=== PATIENT | male | born 2000 | race Caucasian/White ===

== ENCOUNTER 2021-06-25 10:28 | Emergency (ER) | payer OTHER, SELFPAY ==
--- NOTE | 2021-06-25 10:29 | ED.URI ---
HPI - URI/Sore Throat General Chief Complaint: Upper Respiratory Infection Stated Complaint: sore throat Time Seen by Provider: 06/25/21 10:29 Source: patient and RN notes reviewed History of Present Illness HPI Narrative: Patient is a 21-year-old male who presents the urgent care with complaints of sore throat. Patient states that he has had symptoms for the last 3 to 5 days. Reports of postnasal drainage, head congestion and headache. Patient has not had any recent Covid exposures. States that he has had a Covid vaccine. Denies any fever, nausea, vomiting. Patient has been taking ibuprofen for his symptoms. No other acute complaints. No acute distress noted. Patient read the plan of care. Some parts of this dictation were generated by voice recognition software and may contain typographical and/or grammatical inaccuracies. Related Data Allergies Allergy/AdvReac Type Severity Reaction Status Date / Time No Known Allergies Allergy Verified 06/25/21 10:51 Review of Systems Review of Systems: CONSTITUTIONAL: Denies fever, chills, or sweats. EYES: Denies visual changes, redness, or discharge. ENT: Reports of head congestion, sore throat and postnasal drainage CARDIOVASCULAR: Denies chest pain, palpitations, or edema. RESPIRATORY: Denies cough or dyspnea. GASTROINTESTINAL: Denies abdominal pain, nausea, vomiting, or diarrhea. GENITOURINARY: Denies dysuria or hematuria. SKIN: Denies rash or itching. MUSCULOSKELETAL: Denies back pain, joint pain, or myalgia. NEUROLOGIC: Reports of headache All other systems reviewed are negative, except as documented in HPI. PMFSH Comments At the time of my signature, I reviewed and agree with the nursing past medical, surgical, social, and family history. There is no relevant family history pertinent to the patient complaint. Exam Narrative: GENERAL: This is a well-nourished, well-developed patient, in no apparent distress. HEAD: normocephalic, atraumatic. EYES: PERRL. Sclera clear/white. Vision is grossly intact. EARS: External ears normal, auditory canals clear and without drainage, TMs normal without perforation. Hearing grossly intact. NOSE: External nose normal with no obvious nasal discharge, nares without redness, clear to yellow rhinorrhea. THROAT: Mucous membranes moist. Moderate erythema to the posterior oropharynx with mild bilateral tonsillar edema without exudate. Moderate postnasal drainage. NECK: Neck supple CARDIOVASCULAR: Regular rate and rhythm without murmurs, gallops, or rubs. RESPIRATORY: Clear to auscultation. Breath sounds equal bilaterally. No wheezes, rales, or rhonchi. SKIN: warm, intact with no suspicious lesions or rash, good texture and turgor. NEURO: awake, alert, and oriented to person, place and time. There were no obvious focal neurologic abnormalities. EXTREMITIES: No clubbing, cyanosis, or edema. Course Vital Signs Vital signs: Vital Signs Temperature 98.3 F 06/25/21 10:34 Pulse Rate 60 06/25/21 10:34 Respiratory Rate 18 06/25/21 10:34 Blood Pressure 119/72 06/25/21 10:34 Pulse Oximetry 100 06/25/21 10:34 Temperature 98.3 F 06/25/21 10:34 Pulse Rate 60 06/25/21 10:34 Respiratory Rate 18 06/25/21 10:34 Blood Pressure 119/72 06/25/21 10:34 Pulse Oximetry 100 06/25/21 10:34 Reviewed MDM - URI/Sore Throat MDM Narrative Medical decision making narrative: Reviewed lab results with the patient. He is aware that strep swab was negative. Educated patient on culture we will call within 72 hours if culture is positive antibiotics necessary. Rapid Covid swab was also negative. Advised the patient to use Tylenol/ibuprofen as needed for symptoms. Take a daily antihistamine such as Benadryl or Claritin. Complete the steroid regimen as prescribed. Be sure to eat medication. Use a humidifier at night and do not sleep with a fan on or the windows open. Follow-up with your PCP within 2 to 5 days or for worsening symptoms or
[2021-06-25 10:34] VITALS: BP 119/72; PULSE 60; RESP 18; TEMP 36.8; O2SAT 100
== END 2021-06-25 10:55 | disposition home or self-care (01) ==
PROVIDERS: Emergency Provider Nurse Practitioner Family; PCP Nurse Practitioner Family
DX: J02.9 Acute pharyngitis, unspecified (principal); Z20.822 Contact with and (suspected) exposure to COVID-19
CPT/HCPCS: 87081; 87426; 87880; 99213; C9803; G0463

== ENCOUNTER 2024-01-08 17:32 | Emergency (ER) | payer OTHER, SELFPAY ==
--- NOTE | 2024-01-08 17:36 | ED.GENADULT ---
HPI - General Adult General Chief complaint: Upper Respiratory Infection Stated complaint: throat Time Seen by Provider: 01/08/24 17:36 Source: patient, RN notes reviewed and old records reviewed Mode of arrival: ambulatory Limitations: no limitations History of Present Illness HPI narrative: 23-year-old male to [facility] Care for complaint of sore throat and runny nose that started yesterday. Patient attempted to treat sore throat with Chloraseptic spray at home. Patient requesting work note. Patient denies cough, shortness of breath, chest pain, known allergies, GI complaints, ear pain. Patient able to tolerate fluids by mouth. Respirations even and nonlabored. Patient speaking in full sentences without difficulty. Patient in no acute distress. Related Data Allergies Allergy/AdvReac Type Severity Reaction Status Date / Time No Known Allergies Allergy Verified 06/25/21 10:51 Review of Systems Review of Systems: All systems reviewed & are unremarkable except as noted in HPI and below Constitutional: Constitutional: Reports no additional constitutional complaints Eyes: Eyes: Reports no additional eye complaints ENT: Reports as per HPI, Reports nasal discharge and Reports sore throat Cardiovascular: Cardiovascular: Reports no additional cardiovascular complaints, Denies chest pain and Denies dyspnea Respiratory: Respiratory: Reports no additional respiratory complaints, Denies cough and Denies dyspnea Musculoskeletal: Musculoskeletal: Reports no additional musculoskeletal complaints Neurologic: Reports system reviewed and no additional complaints, except as documented Psychiatric: Psychiatric: Reports no additional psychiatric complaints PMFSH Comments At the time of my signature, I reviewed and agree with the nursing past medical, surgical, social, and family history. There is no relevant family history pertinent to the patient complaint. Exam Const: General: cooperative, healthy appearing, comfortable, no acute distress, alert and well nourished Nutritional Appearance: well nourished Orientation/consciousness: patient oriented x3 Limitations: no limitations HENMT: Head: normal to inspection Ears: external ears normal Face/Nose/Sinus: Normal external nose present, Normal nares present, normal facial exam, No erythema and No edema Face and sinus: normal facial exam, no erythema and no edema Mouth: Yes Normal oral and palatal mucosa present Eyes: General: appearance normal, both eyes and all related structures Neck: Neck: normal visual inspection, full ROM and no meningeal signs Lymphatic: no lymphadenopathy noted and no lymphedema noted Chest: Chest palpation & inspection: normal inspection of the chest Resp: Effort & Inspection: normal respiratory effort and able to speak in complete sentences Auscultation: clear to auscultation bilaterally Cardio: Jugular venous distension: no JVD Rate: regular rate Rhythm: regular rhythm Back/Spine/Pelvis: Cervical Spine: cervical ROM normal Skin: General skin exam: normal color, no rashes or lesions noted and turgor normal Neuro: General: patient oriented x3, gait normal, moves all extremities and no meningeal signs Speech: normal speech Gait exam (Neuro): Normal gait present Extrem: General: normal to inspection and full ROM Psych: Appearance: grossly normal and well kempt Course Course Emergency Course: Some parts of this dictation were generated by voice recognition software and may contain typographical and/or grammatical inaccuracies. Level of Care: Express Care Visit Vital Signs Vital signs: Vital Signs Temperature 37.1 C 01/08/24 17:41 Pulse Rate 89 01/08/24 17:41 Respiratory Rate 16 01/08/24 17:41 Blood Pressure 121/74 01/08/24 17:41 Pulse Oximetry 100 01/08/24 17:41 Oxygen Delivery Room Air 01/08/24 17:41 Temperature 37.1 C 01/08/24 17:41 Pulse Rate 89 01/08/24 17:41 Respiratory Rate 16 01/08/24 17:4
[2024-01-08 17:41] VITALS: BP 121/74; PULSE 89; RESP 16; TEMP 37.1; O2SAT 100
== END 2024-01-08 18:17 | disposition home or self-care (01) ==
LOC: EXPBETH 17:35
PROVIDERS: Emergency Provider Nurse Practitioner Family; PCP Nurse Practitioner Family
DX: J06.9 Acute upper respiratory infection, unspecified (principal)
CPT/HCPCS: 87081; 99212; G0463

== ENCOUNTER 2024-08-20 18:58 | Emergency (ER) | payer OTHER, SELFPAY ==
--- OUTSIDE RECORDS SUMMARY | 2024-08-20 19:00 | XMS_ITS | Data Portability ---
[facility] Organization [facility] YOLAND[facility] Astudillo Address [address] [facility] [place] [address] Care Team Providers Care Visual Coordinator Name Role Phone SOLE MITCHELL Primary Care Provider Assessment No assessment recorded. 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 [facility]-C Not available Not available Not available Lab HbA1c (hemoglob in A1c), blood 2020 021 [facility], [address] [place] [address], [address], [place], [address], 04/16/2021 09:13:12 TSH, ultra-sen sitive, serum 2020 021 [facility], [address], [address], [place], [address], 04/16/2021 09:13:13 CMP, serum or plasma 2020 021 [facility], [address], [address], [place], [address], 04/16/2021 09:13:09 lipid panel, serum 2020 021 [place] [facility], [address], [address], [place], [address], 04/16/2021 09:13:11 CBC 2020 021 [facility], [address], [address], [place], [address], 04/16/2021 09:13:10 CT + NG RNA, PCR, unspecifi ed specimen 2021 022 [facility], [address], [address], [place], [address], 09/18/2021 03:08:06 hsv (1+2) igg Ab, serum 2021 022 [facility], [address], [address], [place], [address], 09/18/2021 03:08:07 hepatitis C Ab, signal-to -cutoff, serum or plasma 2021 022 [facility], [address] [facility], [facility] [address], [place], [address], 09/18/2021 03:08:09 hepatitis B surface Ab, qualitati ve, serum 2021 022 [facility], [address] [facility], [facility] [address], [place], [address], 09/18/2021 03:08:07 RPR (rapid plasma reagin), serum 2021 [place] [facility], [address], [address], [place], [address], 09/18/2021 03:08:08 HIV 1 + 2, meaningfu l use set 2021 022 [facility], [address] [facility], [address], [place], [address], 09/18/2021 03:08:08 TSH, ultra-sen sitive, serum 2022 023 [facility], [address], [place], [address], 08/28/2022 07:08:33 CMP, serum or plasma 2022 023 [facility], [address], [address], [place], [address], 08/27/2022 03:08:20 lipid panel, serum 2022 023 [facility], [address], [place], [address], 08/27/2022 03:08:20 CBC 2022 023 [facility], [address], [place], [address], 08/27/2022 03:08:21 CT + NG RNA, PCR, unspecifi ed specimen 2022 023 [facility], [address] [place] [address], [facility] [address], [place], [address], 08/28/2022 07:08:32 hsv (1+2) igg Ab, serum 2022 023 [facility], [address] [facility], [facility] [address], [place], [address], 08/28/2022 07:08:31 hepatitis C Ab, signal-to -cutoff, serum or plasma 2022 023 [facility], [address], [facility] [address], [place], [address], 08/28/2022 07:08:31 hepatitis B surface Ab, qualitati ve, serum 2022 023 [facility], [address], [facility] [address], [place], [address], 08/28/2022 07:08:33 RPR (rapid plasma reagin), serum 2022 023 [facility], [address], [address], [place], [address], 08/28/2022 07:08:34 HIV 1 + 2, meaningfu l use set 2022 023 [facility], [address] [facility], [facility] [address], [place], [address], 08/28/2022 07:08:34 Referral None recorded. Procedures None recorded. Surgeries None recorded. Imaging None recorded. Medication Orders None recorded. Patient TargetsNo targets recorded. Patient Instructions Encounter Date Encounter Id Patient Instructions Last Modified By Organization Details Last Modified Time 03/26/2021 [id number] learning about healthy weight Not available 03/26/2021 11:27:40 Learning About Benefits of Quitting Smoking Not available 03/26/2021 11:26:53 tobacco cessation Not available 03/26/2021 11:26:53 Increase intake of fresh fruits, and vegetables. Avoid packaged foods and fast foods. drink at least 8-10 8oz glasses of water a day, exercise most days of the week. Take all medications as prescribed. Keep appointments with PCP and all specialists. Not available 03/26/2021 11:28:07 follow up as needed, yearly to keep established with provider I have reviewed the provider's note and I agree with the documented assessment and plan. HLF [email or web address] Not available 03/26/2021 19:59:42 09/16/2021 [id number] learning about healthy weight Not available 09/16/2021 16:28:59 exposure to sexually transmitted infections: care instructions Not available 09/16/2021 16:28:59 Increase intake of fresh fruits, and vegetables. Avoid packaged foods and fast foods. Follow a low salt diet, drink at least 8-10 8oz glasses of water a day, exercise most days of the week. Take all medications as prescribed. Keep appointments with PCP and all specialists. Not available 09/16/2021 16:37:51 follow up as needed, yearly to keep established with provider Not available 09/16/2021 16:37:57 08/26/2022 [id number] tetanus and diphtheria booster: care instructions Not available 08/26/2022 15:19:32 learning about vaping Not available 08/26/2022 15:18:15 eating healthy foods: care instructions Not available 08/26/2022 15:18:04 exposure to sexually transmitted infections: care instructions Not available 08/26/2022 15:18:04 Increase intake of fresh fruits, and vegetables. Avoid packaged foods and fast foods. Follow a low salt diet, drink at least 8-10 8oz glasses of water a day, exercise most days of the week. Take all medications as prescribed. Keep appointments with PCP and all specialists. Not available 08/26/2022 15:07:09 follow up as needed, yearly to keep established with provider Not available 08/26/2022 15:07:13 Reason for Referral None Reported. Results Created Date Observation Date Name Description Value Unit Range Abnormal Flag Note LastModifiedBy Organization Detail LastModifiedTime 04/15/2004/16/2021 COMP. METAB OLIC PANEL (14) glucose 84 mg/dL 65-99 Not Available [facility] ([facility]) [address] [place], [address], 04/16/2021 09:13:09 04/15/20 21 04/16/2021 COMP. METAB OLIC PANEL (14) BUN 13 mg/dL 6-20 Not Available [facility] ([facility]) [address] [place], [address], 04/16/2021 09:13:09 04/15/20 21 04/16/2021 COMP. METAB OLIC PANEL (14) creatinine 1.14 mg/dL 0.76-1 .27 Not Available [facility] ([facility]) [address] [place], [address], 04/16/2021 09:13:09 04/15/20 21 04/16/2021 COMP. METAB OLIC PANEL (14) eGFR if nonafricn AM 93 mL/mi n/1.7 3 >59 Not Available [facility] ([facility]) [address] [place], [address], 04/16/2021 09:13:09 04/15/20 21 04/16/2021 COMP. METAB OLIC PANEL (14) eGFR if africn AM 107 mL/mi n/1.7 3 >59 [facility] curre ntly repor ts eGFR in compl iance with the curre nt recom menda tions of the [facility] ation . [facility] will updat e repor ting as new guide lines are publi shed from the NKF-A SN Task force . Not Available [facility] ([facility]) [address], [place], [address], 04/16/2021 09:13:09 04/15/20 21 04/16/2021 COMP. METAB OLIC PANEL (14) BUN/creatini ne ratio 11 9-20 Not Available [facility] ([facility]) [address] [place], [address], 04/16/2021 09:13:09 04/15/20 21 04/16/2021 COMP. METAB OLIC PANEL (14) sodium 141 mmol/ L 134-14 4 Not Available [facility] ([facility]) [address] [place], [address], 04/16/2021 09:13:09 04/15/20 21 04/16/2021 COMP. METAB OLIC PANEL (14) potassium 4.4 mmol/ L 3.5-5. 2 Not Available [facility] ([facility]) [address] [place], [address], 04/16/2021 09:13:09 04/15/20 21 04/16/2021 COMP. METAB OLIC PANEL (14) chloride 103 mmol/ L 96-106 Not Available [facility] ([facility]) [address] [place], [address], 04/16/2021 09:13:09 10/07/04/16/2021 COMP. METAB OLIC PANEL (14) carbon dioxide, total 25 mmol/ L 20-29 Not Available [facility] ([facility]) [address], [place], [address], 04/16/2021 09:13:09 04/15/20 21 04/16/2021 COMP. METAB OLIC PANEL (14) calcium 9.5 mg/dL 8.7-10 .2 Not Available [facility] ([facility]) [address], [place], [address], 04/16/2021 09:13:09 04/15/20 21 04/16/2021 COMP. METAB OLIC PANEL (14) protein, total 7.2 g/dL 6.0-8. 5 Not Available [facility] ([facility]) [address], [place], [address], 04/16/2021 09:13:09 04/15/20 21 04/16/2021 COMP. METAB OLIC PANEL (14) albumin 4.7 g/dL 4.1-5. 2 Not Available [facility] ([facility]) [address] [place], [address], 04/16/2021 09:13:09 04/15/20 21 04/16/2021 COMP. METAB OLIC PANEL (14) globulin, total 2.5 g/dL 1.5-4. 5 Not Available [facility] ([facility]) [address] [place], [address], 04/16/2021 09:13:09 04/15/20 21 04/16/2021 COMP. METAB OLIC PANEL (14) A/G ratio 1.9 1.2-2. 2 Not Available [facility] ([facility]) [address], [place], [address], 04/16/2021 09:13:09 04/15/20 21 04/16/2021 COMP. METAB OLIC PANEL (14) bilirubin, total 0.3 mg/dL 0.0-1. 2 Not Available [facility] ([facility]) [address], [place], [address], 04/16/2021 09:13:09 04/15/20 21 04/16/2021 COMP. METAB OLIC PANEL (14) alkaline phosphatase 71 IU/L 51-125 Ple ase note refer ence inter rebel moody e Not Available [facility] ([facility]) [address], [place], [address], 04/16/2021 09:13:09 04/15/20 21 04/16/2021 COMP. METAB OLIC PANEL (14) AST (SGOT) 15 IU/L 0-40 Not Available [facility] ([facility]) [address], [place], [address], 04/16/2021 09:13:09 04/15/20 21 04/16/2021 COMP. METAB OLIC PANEL (14) ALT (SGPT) 11 IU/L 0-44 Not Available [facility] ([facility]) [address], [place], [address], 04/16/2021 09:13:09 04/15/20 21 04/16/2021 CBC, NO DIFFE RENTI AL/PL ATELE T WBC 6.2 x10e3 /uL 3.4-10 .8 Not Available [facility] ([facility]) [address] [place], [address], 04/16/2021 09:13:10 04/15/20 21 04/16/2021 CBC, NO DIFFE RENTI AL/PL ATELE T RBC 4.65 x10e6 /uL 4.14-5 .80 Not Available [facility] ([facility]) [address], [place], [address], 04/16/2021 09:13:10 04/15/20 21 04/16/2021 CBC, NO DIFFE RENTI AL/PL ATELE T hemoglobin 15.0 g/dL 13.0-1 7.7 Not Available [facility] ([facility]) [address], [place], [address], 04/16/2021 09:13:10 04/15/20 21 04/16/2021 CBC, NO DIFFE RENTI AL/PL ATELE T hematocrit 42.4 % 37.5-5 1.0 Not Available [facility] ([facility]) [address] [place], [address], 04/16/2021 09:13:10 04/15/2004/16/2021 CBC, NO DIFFE RENTI AL/PL ATELE T MCV 91 fL 79-97 Not Available [facility] ([facility]) [address] [place], [address], 04/16/2021 09:13:10 04/15/2004/16/2021 CBC, NO DIFFE RENTI AL/PL ATELE T MCH 32.3 pg 26.6-3 3.0 Not Available [facility] ([facility]) [address] [place], [address], 04/16/2021 09:13:10 04/15/2004/16/2021 CBC, NO DIFFE RENTI AL/PL ATELE T MCHC 35.4 g/dL 31.5-3 5.7 Not Available [facility] ([facility]) [address] [place], [address], 04/16/2021 09:13:10 04/15/20 21 04/16/2021 CBC, NO DIFFE RENTI AL/PL ATELE T RDW 11.3 % 11.6-1 5.4 below low normal Not Available [facility] ([facility]) [address] [place], [address], 04/16/2021 09:13:10 04/15/20 04/16/2021 CBC, NO DIFFE RENTI AL/PL ATELE T NRBC NARRATIVE WRITER Not Available [facility] ([facility]) [address], [place], [address], 04/16/2021 09:13:10 04/15/20 21 04/16/2021 LIPID PANEL cholesterol, total 126 mg/dL 100-16 9 Not Available [facility] ([facility]) [address], [place], [address], 04/16/2021 09:13:11 04/15/20 21 04/16/2021 LIPID PANEL triglyceride s 89 mg/dL 0-89 Not Available [facility] ([facility]) [address] [place], [address], 04/16/2021 09:13:11 04/15/20 21 04/16/2021 LIPID PANEL HDL cholesterol 45 mg/dL >39 Not Available [facility] ([facility]) [address], [place], [address], 04/16/2021 09:13:11 04/15/20 21 04/16/2021 LIPID PANEL VLDL cholesterol johny 17 mg/dL 5-40 Not Available [facility] ([facility]) [address], [place], [address], 04/16/2021 09:13:11 04/15/20 21 04/16/2021 LIPID PANEL LDL chol calc ([facility]) 64 mg/dL 0-109 Not Available [facility] ([facility]) [address], [place], [address], 04/16/2021 09:13:11 04/15/20 21 04/16/2021 LIPID PANEL comment: NARRATIVE WRITER Not Available [facility] ([facility]) [address], [place], [address], 04/16/2021 09:13:11 04/15/20 21 04/16/2021 HEMOG LOBIN A1C hemoglobin A1C 5.3 % 4.8-5. 6 Predi abete s: 5.7 - 6.4 Diabe madhu: >6.4 Glyce alessandro contr ol for adult s with diabe madhu: <7.0 Not Available [facility] ([facility]) [address], [place], [address], 04/16/2021 09:13:12 04/15/20 21 04/16/2021 TSH RFX ON ABNOR MAL TO FREE T4 TSH 1.360 uIU/m L 0.450- 4.500 Not Available [facility] ([facility]) [address] [place], [address], 04/16/2021 09:13:13 05/20/20 21 05/22/2021 CHLAM YDIA/ GC AMPLI FICAT ION chlamydia trachomatis, JARED Positi ve negati ve abnormal Not Available [facility] ([facility]) [address], [place], [address], 05/22/2021 03:07:43 05/20/20 21 05/22/2021 CHLAM YDIA/ GC AMPLI FICAT ION neisseria gonorrhoeae, JARED Negati ve negati ve Not Available [facility] ([facility]) [address] [place], [address], 05/22/2021 03:07:43 05/20/20 21 2021 HSV 1 AND 2-SPE C AB, IGG W/RFX hsv 1 IgG, type spec <0.91 index 0.00-0 .90 Negat [place] <0.91 Equiv ocal 0.91 - 1.09 Posit [place] >1.09 Note: Negat [place] indic ates no antib odies detec john to HSV-1 . Equiv ocal may sugge st early infec tion. If clini marilynn appro priat e, retes t at later date. Posit [place] indic ates antib odies detec john to HSV-1 . Not Available [facility] ([facility]) [address], [place], [address], 05/22/2021 03:07:44 05/20/20 21 2021 HSV 1 AND 2-SPE C AB, IGG W/RFX hsv 2 IgG, type spec <0.91 index 0.00-0 .90 Negat [place] <0.91 Equiv ocal 0.91 - 1.09 Posit [place] >1.09 Note: Negat [place] indic ates no antib odies detec john to HSV-2 . Equiv ocal may sugge st early infec tion. If clini marilynn appro priat e, retes t at later date. Posit [place] indic ates antib odies detec john to HSV-2 . Not Available [facility] ([facility]) [address], [place], [address], 05/22/2021 03:07:44 05/20/2005/21/2021 HEP B SURFA CE AB hep B surface Ab, qual Non Reacti ve Non React [place]: Incon siste nt with immun ity, less than 10 mIU/m L React [place]: Consi stent with immun ity, great er than 9.9 mIU/m L Not Available [facility] ([facility]) [address], [place], [address], 05/22/2021 03:07:45 05/20/20 21 2021 RPR, RFX QN RPR/C ONFIR M TP RPR Non Reacti ve non reacti ve Not Available [facility] ([facility]) [address], [place], [address], 05/22/2021 03:07:46 05/20/2005/21/2021 HIV AG/AB WITH REFLE X HIV screen 4TH generation wrfx Non Reacti ve non reacti ve Not Available [facility] ([facility]) [address], [place], [address], 05/22/2021 03:07:46 11/11/05/21/2021 HCV ANTIB MAYRA hep C virus Ab <0.1 s/co_ ratio 0.0-0. 9 Negat [place]: < 0.8 Indet ermin ate: 0.8 - 0.9 Posit [place]: > 0.9 The [facility] recom mends that a posit [place] HCV antib mayra resul t be follo wed up with a HCV Nucle ic Acid Ampli ficat ion test (5507 13). Not Available [facility] ([facility]) [address], [place], [address], 05/22/2021 03:07:47 09/17/19 22 09/17/2021 CHLAM YDIA/ GC AMPLI FICAT ION chlamydia trachomatis, JARED NEGATI VE negati ve Not Available [facility] ([facility]) [address], [place], [address], 09/18/2021 03:08:06 09/17/1909/17/2021 CHLAM YDIA/ GC AMPLI FICAT ION neisseria gonorrhoeae, JARED NEGATI VE negati ve Not Available [facility] ([facility]) [address], [place], [address], 09/18/2021 03:08:06 09/17/19 22 09/17/2021 HSV 1 AND 2-SPE C AB, IGG W/RFX hsv 1 IgG, type spec <0.91 index 0.00-0 .90 Negat [place] <0.91 Equiv ocal 0.91 - 1.09 Posit [place] >1.09 Note: Negat [place] indic ates no antib odies detec john to HSV-1 . Equiv ocal may sugge st early infec tion. If clini marilynn appro priat e, retes t at later date. Posit [place] indic ates antib odies detec john to HSV-1 . Not Available [facility] ([facility]) [address], [place], [address], 09/18/2021 03:08:07 09/17/1909/17/2021 HSV 1 AND 2-SPE C AB, IGG W/RFX hsv 2 IgG, type spec <0.91 index 0.00-0 .90 Negat [place] <0.91 Equiv ocal 0.91 - 1.09 Posit [place] >1.09 Note: Negat [place] indic ates no HSV-2 antib odies detec john. Posit [place] indic ates HSV-2 antib odies detec john. Equiv ocal and low posit [place] HSV-2 scree ns (Inde x 0.91- 5.00) may be false posit [place] and are refle xed to suppl true zhou testi ng in accor dance with CDC guide lines . Not Available [facility] ([facility]) [address], [place], [address], 09/18/2021 03:08:07 09/17/19 22 09/17/2021 HEP B SURFA CE AB hep B surface Ab, qual NON REACTI VE Non React [place]: Incon siste nt with immun ity, less than 10 mIU/m L React [place]: Consi stent with immun ity, great er than 9.9 mIU/m L Not Available [facility] ([facility]) [address], [place], [address], 09/18/2021 03:08:07 09/17/19 22 09/17/2021 RPR, RFX QN RPR/C ONFIR M TP RPR NON REACTI VE non reacti ve Not Available [facility] ([facility]) [address] [place], [address], 09/18/2021 03:08:08 09/17/19 22 09/17/2021 HIV AB/P2 4 AG WITH REFLE X HIV Ab/P24 Ag screen NON REACTI VE non reacti ve HIV Negat [place] HIV-1 /HIV- 2 antib odies and HIV-1 p24 antig en were NOT detec john. There is no labor atory evide nce of HIV infec tion. Not Available [facility] ([facility]) [address], [place], [address], 09/18/2021 03:08:08 09/17/19 22 09/17/2021 HCV ANTIB MAYRA hep C virus Ab <0.1 s/co_ ratio 0.0-0. 9 Negat [place]: < 0.8 Indet ermin ate: 0.8 - 0.9 Posit [place]: > 0.9 The CDC recom mends that a posit [place] HCV antib mayra resul t be follo wed up with a HCV Nucle ic Acid Ampli ficat ion test (5506 13). Not Available [facility] ([facility]) [address], [place], [address], 09/18/2021 03:08:09 08/26/19 23 08/26/2022 LIPID PANEL cholesterol, total 135.9 mg/dL 140.0- 200.0 below low normal Not Available [facility] [address] [place] [address], [address], 08/27/2022 03:08:20 08/26/19 23 08/26/2022 LIPID PANEL triglyceride s 53 mg/dL <=150 Not Available [facility] [address] [place] [address], [address], 08/27/2022 03:08:20 08/26/19 23 08/26/2022 LIPID PANEL HDL cholesterol 53.0 mg/dL 40.0-1 00.0 Not Available [facility] [address] [place], [address], 08/27/2022 03:08:20 08/26/19 23 08/26/2022 LIPID PANEL VLDL cholesterol johny 10.60 mg/dL 5.00-4 0.00 Not Available [facility] [address] [place] [address], [address], 08/27/2022 03:08:20 08/26/19 23 08/26/2022 LIPID PANEL LDL chol calc ([facility]) 71.[address] [facility] [address] [place], [address], 08/27/2022 03:08:20 08/26/19 23 08/26/2022 COMP. METAB OLIC PANEL (14) glucose 89 mg/dL 65-99 ANION GP 16.0 mmol/ L N OSMOL 279.0 mOsM/ L N REFER ENCE RANGE : 275.0 -301. 0 Not Available [facility] [address] [place], [address], 08/27/2022 03:08:20 08/26/19 23 08/26/2022 COMP. METAB OLIC PANEL (14) BUN 11 mg/dL 8-26 Not Available [facility] [address] [place], [address], 08/27/2022 03:08:20 08/26/19 23 08/26/2022 COMP. METAB OLIC PANEL (14) creatinine 0.99 mg/dL 0.50-1 .40 Not Available [facility] [address] [place], [address], 08/27/2022 03:08:20 08/26/19 23 08/26/2022 COMP. METAB OLIC PANEL (14) eGFR 111 mL/mi n/1.7 3 >=60 Not Available [facility] [address] [place], [address], 08/27/2022 03:08:20 08/26/19 23 08/26/2022 COMP. METAB OLIC PANEL (14) BUN/creatini ne ratio 11.2 Not Available [facility] [address] [place], [address], 08/27/2022 03:08:20 08/26/19 23 08/26/2022 COMP. METAB OLIC PANEL (14) sodium 140.3 mmol/ L 136.0- 144.0 Not Available [facility] [address] [place] [address], [address], 08/27/2022 03:08:20 08/26/19 23 08/26/2022 COMP. METAB OLIC PANEL (14) potassium 5.0 mmol/ L 3.5-5. 3 Not Available [facility] [address] [place], [address], 08/27/2022 03:08:20 08/26/19 23 08/26/2022 COMP. METAB OLIC PANEL (14) chloride 104 mmol/ l 101-11 1 Not Available [facility] [address] [place], [address], 08/27/2022 03:08:20 08/26/19 23 08/26/2022 COMP. METAB OLIC PANEL (14) carbon dioxide, total 24.9 mmol/ L 21.0-3 2.0 Not Available [facility] [address] [place], [address], 08/27/2022 03:08:20 08/26/19 23 08/26/2022 COMP. METAB OLIC PANEL (14) calcium 9.9 mg/dL 8.2-10 .0 Not Available [facility] [address] [place], [address], 08/27/2022 03:08:20 08/26/19 23 08/26/2022 COMP. METAB OLIC PANEL (14) protein, total 7.9 g/dL 6.7-8. 2 Not Available [facility] [address] [place], [address], 08/27/2022 03:08:20 08/26/19 23 08/26/2022 COMP. METAB OLIC PANEL (14) albumin 5.1 g/dL 3.5-5. 5 Not Available [facility] [address] [place], [address], 08/27/2022 03:08:20 08/26/19 23 08/26/2022 COMP. METAB OLIC PANEL (14) globulin, total 2.8 g/dL 1.5-4. 5 Not Available [facility] [address] [place], [address], 08/27/2022 03:08:20 08/26/19 23 08/26/2022 COMP. METAB OLIC PANEL (14) A/G ratio 1.8 Not Available [facility] Department [address] [place], [address], 08/27/2022 03:08:20 08/26/19 23 08/26/2022 COMP. METAB OLIC PANEL (14) bilirubin, total 0.6 mg/dL 0.0-1. 2 Not Available [facility] [address] [place], [address], 08/27/2022 03:08:20 08/26/19 23 08/26/2022 COMP. METAB OLIC PANEL (14) alkaline phosphatase 61.4 IU/L 42.0-1 21.0 Not Available [facility] [address] [place], [address], 08/27/2022 03:08:20 08/26/19 23 08/26/2022 COMP. METAB OLIC PANEL (14) AST (SGOT) 14.2 U/L 10.0-4 2.0 Not Available [facility] [address] [place], [address], 08/27/2022 03:08:20 08/26/19 23 08/26/2022 COMP. METAB OLIC PANEL (14) ALT (SGPT) 7.8 U/L 10.0-6 0.0 below low normal Not Available [facility] [address] [place], [address], 08/27/2022 03:08:20 08/26/19 23 08/26/2022 CBC, NO DIFFE RENTI AL/PL ATELE T WBC 5.7 K/uL 3.4-10 .8 Not Available [facility] [address] [place] [address], [id number], 08/27/2022 03:08:21 08/26/19 23 08/26/2022 CBC, NO DIFFE RENTI AL/PL ATELE T RBC 4.8 M/uL 4.5-6. 3 Not Available [facility] [address] [place], [address], 08/27/2022 03:08:21 08/26/19 23 08/26/2022 CBC, NO DIFFE RENTI AL/PL ATELE T hemoglobin 15.2 g/dL 13.5-1 7.5 Not Available [facility] [address] [place], [address], 08/27/2022 03:08:21 08/26/1908/26/2022 CBC, NO DIFFE RENTI AL/PL ATELE T hematocrit 44.6 % 40.0-5 2.0 Not Available [facility] [address] [place], [address], 08/27/2022 03:08:21 08/26/19 23 08/26/2022 CBC, NO DIFFE RENTI AL/PL ATELE T MCV 94 fL 80-95 Not Available [facility] [address] [place], [address], 08/27/2022 03:08:21 08/26/1908/26/2022 CBC, NO DIFFE RENTI AL/PL ATELE T MCH 32 pg 27-32 Not Available [facility] Department [address] [place], [address], 08/27/2022 03:08:21 08/26/1908/26/2022 CBC, NO DIFFE RENTI AL/PL ATELE T MCHC 34 g/dL 32-36 Not Available [facility] Department [address] [place], [address], 08/27/2022 03:08:21 08/26/19 23 08/26/2022 CBC, NO DIFFE RENTI AL/PL ATELE T RDW 11.4 % 11.5-1 4.5 below low normal Not Available [facility] Department [address] [place], [address], 08/27/2022 03:08:21 08/26/19 23 08/27/2022 HCV ANTIB MAYRA CASCA DE(PC R/GEN O) HCV Ab Non Reacti ve nonrea ctive Not Available [facility] ([facility]) [address] [place], [address], 08/28/2022 07:08:31 08/26/1908/27/2022 HSV 1 AND 2-SPE C AB, IGG W/RFX hsv 1 IgG, type spec <0.91 Negat [place] <0.91 Equiv ocal 0.91 - 1.09 Posit [place] >1.09 Note: Negat [place] indic ates no antib odies detec john to HSV-1 . Equiv ocal may sugge st early infec tion. If clini marilynn appro priat e, retes t at later date. Posit [place] indic ates antib odies detec john to HSV-1 . Not Available [facility] ([facility]) [address], [place], [address], 08/28/2022 07:08:31 08/26/1908/27/2022 HSV 1 AND 2-SPE C AB, IGG W/RFX hsv 2 IgG, type spec <0.91 Negat [place] <0.91 Equiv ocal 0.91 - 1.09 Posit [place] >1.09 Note: Negat [place] indic ates no HSV-2 antib odies detec john. Posit [place] indic ates HSV-2 antib odies detec john. Equiv ocal and low posit [place] HSV-2 scree ns (Inde x 0.91- 5.00) may be false posit [place] and are refle xed to suppl ement al testi ng in accor dance with CDC guide lines . Not Available [facility] ([facility]) [address], [place], [address], 08/28/2022 07:08:31 08/26/19 23 08/28/2022 CHLAM YDIA/ GC AMPLI FICAT ION chlamydia trachomatis, JARED Negati ve negati ve Not Available [facility] ([facility]) [address], [place], [address], 08/28/2022 07:08:32 08/26/19 23 08/28/2022 CHLAM YDIA/ GC AMPLI FICAT ION neisseria gonorrhoeae, JARED Negati ve negati ve Not Available [facility] ([facility]) [address], [place], [address], 08/28/2022 07:08:32 08/26/19 23 08/27/2022 TSH RFX ON ABNOR MAL TO FREE T4 TSH 0.744 uIU/m L 0.450- 4.500 Not Available [facility] ([facility]) [address], [place], [address], 08/28/2022 07:08:33 08/26/1908/27/2022 HEP B SURFA CE AB hep B surface Ab, qual Non Reacti ve Non React [place]: Incon siste nt with immun ity, less than 10 mIU/m L React [place]: Consi stent with immun ity, great er than 9.9 mIU/m L Not Available [facility] ([facility]) [address], [place], [address], 08/28/2022 07:08:33 08/26/19 23 08/27/2022 RPR, RFX QN RPR/C ONFIR M TP RPR Non Reacti ve nonrea ctive Not Available [facility] ([facility]) [address] [place], [address], 08/28/2022 07:08:34 08/26/19 23 08/27/2022 HIV AB/P2 4 AG WITH REFLE X HIV Ab/P24 Ag screen Non Reacti ve nonrea ctive HIV Negat [place] HIV-1 /HIV- 2 antib odies and HIV-1 p24 antig en were NOT detec john. There is no labor atory evide nce of HIV infec tion. Not Available [facility] ([facility]) [address], [place], [address], 08/28/2022 07:08:34 08/26/19 23 08/27/2022 INTER PRETA TION: interpretati on: Commen t Not infec john with HCV unles s early or acute infec tion is suspe cted (whic h may be delay ed in an immun ocomp romis ed indiv idual ), or other evide nce exist s to indic ate HCV infec tion. Not Available [facility] ([facility]) [address], [place], [address], 08/28/2022 07:08:30 Result Notes None recorded. Problems No Known Problems Medical Equipment None Reported. Allergies No known drug allergies Medications Name Sig Start Date Stop Date Status Note LastModified by Organization Details LastModified Time prednisone 10 mg tablet 09/16 completed Not Available Not Available Not Available doxycycline monohydrate 100 mg capsule TAKE 1 CAPSULE BY MOUTH TWICE DAILY FOR 7 DAYS 09/16 completed Not Available Not Available Not Available tobramycin 0.3 %-dexametha sone 0.1 % eye drops,suspe nsion 08/26 completed Not Available Not Available Not Available azithromyci n 500 mg tablet TAKE 2 TABLETS BY MOUTH FOR 1 DAY 09/16 completed Not Available Not Available Not Available ID NOW COVID-19 Test Kit TEST DIRECTED 09/16 completed Not Available Not Available Not Available Vitals Date Recorded Body height Body mass index (BMI) Percentile per age and sex Body mass index (BMI) Body weight Oxygen saturation Oxygen saturation in Arterial blood by Pulse oximetry Heart rate Respiratory rate Body temperature Systolic blood pressure Diastolic blood pressure Provider Name and Address Organization Details Last Updated DateTime 1 180.34 cm 1 % 17.9 kg/m2 64974.1 7 g 98 % 98 % 81 /min 16 /min 97.3 [degF] 124 mm[Hg] 86 mm[Hg] Rowan Lowry MA [facility] 1 11:07:55 Date Recorded Body height Body temperature Provider N carina and Address Organization Details Last Updated DateTime 04/22/2021 180.34 cm 97.3 [degF] Benedicto Mckeon MA [facility] 04/22/2021 16:02:30 Date Recorded Body height Body temperature Provider N carina and Address Organization Details Last Updated DateTime 05/14/2021 180.34 cm 97.3 [degF] Benedicto Mckeon MA [facility] 05/14/2021 12:11:14 Date Recorded Body height Body mass index (BMI) Percentile per age and sex Body mass index (BMI) Body weight Oxygen saturation Oxygen saturation in Arterial blood by Pulse oximetry Respiratory rate Heart rate Body temperature Systolic blood pressure Diastolic blood pressure Provider Name and Address Organization Details Last Updated DateTime 2 180.34 cm 1 % 18.1 kg/m2 32917.0 1 g 97 % 97 % 16 /min 102 /min 97.3 [degF] 114 mm[Hg] 78 mm[Hg] Daiana Espana [facility] 2 16:16:21 Date Recorded Body height Body mass index (BMI) Body weight Oxygen saturation Oxygen saturation in Arterial blood by Pulse oximetry Heart rate Respiratory rate Body temperature Systolic blood pressure Diastolic blood pressure Provider Name and Address Organization Details Last Updated DateTime 3 180.34 cm 17.3 kg/m2 10621.4 5 g 96 % 96 % 92 /min 16 /min 99.6 [degF] 128 mm[Hg] 86 mm[Hg] Daiana Espana [facility] 3 15:04:01 Social History Question Answer Notes LastModified by Organizat ion Details LastModified Time Tobacco Smoking Status Never Smoker Rowan Lowry MA [facility] 03/26/2021 11:02:27 Do You Have An Advance Directive? No Information not available 03/26/2021 What Is Your Level Of Alcohol Consumption? None Information not available 03/26/2021 Are You Blind Or Do You Have Difficulty Seeing? No Information not available 03/26/2021 What Is Your Level Of Caffeine Consumption? Occasional [email or web address] Information not available 08/26/2022 In The 14 Days Before Symptom Onset, Have You Had Close Contact With A Laboratory-confir med COVID-19 While That Case Was Ill? No Information not available 03/26/2021 In The 14 Days Before Symptom Onset, Have You Had Close Contact With A Person Who Is Under Investigation For COVID-19 While That Person Was Ill? No Information not available 03/26/2021 Have You Been To An Area Known To Be High Risk For COVID-19? No Information not available 03/26/2021 Are You Currently Employed? No [email or web address] Information not available 08/26/2022 Are You Deaf Or Do You Have Serious Difficulty Hearing? No Information not available 03/26/2021 What Type Of Diet Are You Following? REGULAR Information not available 03/26/2021 Do You Or Have You Ever Used E-cigarettes Or Vape? Current User Of Electronic Cigarettes [email or web address] Information not available 08/26/2022 Are There Any Guns Present In Your Home? No Information not available 03/26/2021 What Was The Date Of Your Most Recent Tobacco Screening? 08/26/2022 [email or web address] Information not available 08/26/2022 What Is Your Relationship Status? Single Information not available 03/26/2021 Do You Use Your Seat Belt Or Car Seat Routinely? Yes Information not available 03/26/2021 Do You Have Smoke And Carbon Monoxide Detectors In Your Home? Yes Information not available 03/26/2021 Are You Passively Exposed To Smoke? No Information no t available 03/26/2021 Do You Feel Stressed (tense, Restless, Nervous, Or Anxious, Or Unable To Sleep At Night)? [id number] Information not available 03/26/2021 Do You Use Any Illicit Or Recreational Drugs? No Information not available 03/26/2021 Do You Use Sunscreen Routinely? Yes Information not available 03/26/2021 Has Tobacco Cessation Counseling Been Provided? Yes [email or web address] Information not available 08/26/2022 On What Date Was Tobacco Cessation Counseling Provided? 08/26/2022 [email or web address] Information not available 08/26/2022 Do You Or Have You Ever Used Any Other Forms Of Tobacco Or Nicotine? Yes Information not available 03/26/2021 How Many Years Have You Used E-cigarettes Or Vape? 5 [email or web address] Information not available 08/26/2022 Sex: Unknown Functional Status Question Answer Note LastModified by Organization D etails LastModified Time Are you able to care for yourself? Yes Information n ot available 03/26/2021 What is your exercise level? None [email or web address] Information not available 08/26/2022 Mental Status None recorded. Family History Nothing Reported Notes:He thinks his grandma has low WBC Medical History Condition Response Coronary Artery Disease N Other N Atrial Fibrillation N High Blood Pressure N Depression N COPD N Blood Clots N Anxiety Disorder N Muscle, Joint, or Bone Problems N Acid Reflux (GERD) N Cancer N Stroke N ADHD N High Cholesterol N Liver Disease N Schizophrenia N Headaches N Kidney or Bladder Problems N Thyroid Problems N GI Problems N Eating Disorder N Skin Problems N Anemia N Heart Attack ([place]) N Diabetes N Seizures/Epilepsy N Asthma N Allergies N Substance Abuse N Hepatitis N Osteoporosis N Heart Failure N Immunizations Vaccine Type Date Status Note Provider Nam e and Address Organization Details Recorded Time Hib, unspecified formulation 3 completed Sole Mitchell APN, [employer] Attn: [address] [place], [place], [address] [place] [address] [place] [facility] 08/26/2022 15:18:49 Hib, unspecified formulation 2 completed Sole Mitchell APN, [employer] Attn: Accounting,[address] [place], [address], [place] [facility] 08/26/2022 15:18:49 Hib-Hep B 2 completed Sole Mitchell APN, [employer] Attn: Accounting,[address] [place], [address], [place] [facility] 08/26/2022 15:18:49 Hib-Hep B 2 completed Sole Mitchell, [employer], [employer] Attn: Accounting,[address] [facility], [place], [place], [address] [place] [address], [facility] 08/26/2022 15:18:49 IPV 2 completed Sole Mitchell, [employer], [employer] Attn: Accounting,[address] [facility], [place], [place], [address] [place] [address], [facility] 08/26/2022 15:18:49 IPV 2 completed Sole Mitchell, [employer]ER, [employer] Attn: Accounting,[address] [facility], [place], [address] [place] [address], [facility] 08/26/2022 15:18:49 IPV 6 completed Sole Mitchell, [employer]BLER, [employer] Attn: Accounting,[address] [facility], [place], [place], [address] [place] [address], [facility] 08/26/2022 15:18:49 IPV 2 completed Sole Mitchell, [employer]BLER, [employer] Attn: Accounting,[address] [facility], [place], [place], [address] [place] [address], [facility] 08/26/2022 15:18:49 MMR 3 completed Sole Mitchell, [employer], [employer] Attn: Accounting,[address] [facility], [place], [place], [address] [place] [address], [facility] 08/26/2022 15:18:49 MMR 6 completed Sole Mitchell, [employer]ER, [employer] Attn: Accounting,[address] [facility], [place], [address] [place] [address], [facility] 08/26/2022 15:18:49 pneumococcal conjugate PCV 7 2 completed Sole Mitchell, [employer]BLER, [employer] Attn: Accounting,[address] [facility], [place], [place], [address] [place] [address] - [facility] 08/26/2022 15:18:49 pneumococcal conjugate PCV 7 3 completed Sole Mitchell, [employer]BLER, [employer] Attn: Accounting,[address] [facility], [place], [place], [address] [place] [address], [facility] - [facility] 08/26/2022 15:18:49 pneumococcal conjugate PCV 7 2 completed Sole Mitchell, [employer]BLER, [employer] Attn: Accounting,[address] [facility], [place], [place], [address] [place] [address], [facility] 08/26/2022 15:18:49 pneumococcal conjugate PCV 7 2 completed Sole Mitchell, [employer]ER, [employer] Attn: Accounting,[address] [facility], [place], [place], [address] [place] [address], [facility] 08/26/2022 15:18:49 Tdap 3 completed Sole Mitchell, [employer]ER, [employer] Attn: Accounting,[address] [facility], [place], [place], [address] [place] [address], [facility] 08/26/2022 15:18:49 varicella 3 completed Sole Mitchell, [employer]ER, [employer] Attn: Accounting,[address] [facility], [place], [address] [place] [address], [facility] 08/26/2022 15:18:49 varicella 6 completed Sole Mitchell, [employer]BLER, [employer] Attn: Accounting,[address] [facility], [place], [place], [address] [place] [address], [facility] 08/26/2022 15:18:49 HPV, quadrivalent 3 completed Sole Mitchell, [employer]ER, [employer] Attn: Accounting,[address] [facility], [place], [address] [place] [address], [facility] 08/26/2022 15:18:49 Hep B, adolescent or pediatric 1 completed Sole Mitchell, [employer]ER, [employer] Attn: Accounting,[address] [facility], [place], [address] [place] [address], [facility] 08/26/2022 15:18:49 Hep A, pediatric, unspecified formulation 6 completed Sole Mitchell, [employer]ER, [employer] Attn: Accounting,[address] [facility], [place], [address] [place] [address], [facility] 08/26/2022 15:18:49 Hep A, pediatric, unspecified formulation 6 completed Sole Mitchell, [employer]ER, [employer] Attn: Accounting,[address] [facility], [place], [place], [address] [place] [address], [facility] 08/26/2022 15:18:49 meningococcal MCV4P 3 completed Sole Mitchell, [employer]ER, [employer] Attn: Accounting,[address] [facility], [place], [place], [address] [place] [address], [facility] 08/26/2022 15:18:49 DTaP 2 completed Sole Mitchell, [employer]BLER, [employer] Attn: Accounting,[address] [facility], [place], [place], [address] [place] [address], [facility] 08/26/2022 15:18:49 DTaP 3 completed Sole Mitchell, [employer]BLER, [employer]ATOR [employer] Attn: Accounting,[address] [facility], [place], [address] [place] [address], [facility] 08/26/2022 15:18:49 DTaP 2 completed Sole Mitchell, [employer]BLER, [employer]ATOR [employer] Attn: Accounting,[address] [facility], [place], [address] [place] [address], [facility] 08/26/2022 15:18:49 DTaP 6 completed Sole Mitchell, [employer]BLER, [employer] Attn: Accounting,[address] [facility], [place], [place], [address] [place] [address], [facility] 08/26/2022 15:18:49 DTaP 2 completed Sole Mitchell, [employer]BLER, [employer] Attn: Accounting,[address] [facility], [place], [place], [address] [place] [address], [facility] 08/26/2022 15:18:49 COVID-19, mRNA, LNP-S, PF, 30 mcg/0.3 mL dose 1 completed Benedicto [place], [place] [facility] 04/22/2021 16:02:44 COVID-19, mRNA, LNP-S, PF, 30 mcg/0.3 mL dose 1 completed Benedicto [place] [facility] 05/14/2021 12:11:58 Tdap 3 completed Daiana [place], [place] [facility] 08/26/2022 15:53:08 Past Encounters Encounter ID Performer Location Encounter Start Date Encounter Closed Date Diagnosis/Indication Diagnosis SNOMED-CT Code Diagnosis ICD10 Code Diagnosis Note [id number] Blanche son MD [facility] (Adult Med) [address] [place] [address] 03/26/2021 10:56:20 03/30/2021 09:34:16 Adult health examination 775482386 Z00.01 Encouraged patient to eat well balanced meals, live active lifestyle and attend routine vision/den tri apts. Electronic cigarette user 975300851 Z72.0 Smoking cessation encouraged . Body mass index less than 20 870110794 Z68.1 healthy diet advised [id number] [facility] (Adult Med) [address] [place] [address] 04/22/2021 15:33:19 04/23/2021 11:42:12 Administration of SARS-CoV-2 antigen vaccine 822242242 Z23 [id number] [facility] [address] [place] [address] 05/14/2021 11:49:24 05/17/2021 11:42:01 Administration of SARS-CoV-2 antigen vaccine 468240543 Z23 [id number] Sole Mitchell APN, GLORY [facility] (Adult Med) [address] [place] [address] 09/16/2021 15:59:36 09/17/2021 10:53:14 Exposure to sexually transmissible disorder 448059252 Z20.2 exposed to std,was treated twice for std he got from GF,will repeat screeningh iv consent signed Body mass index less than 20 478978533 Z68.1 healthy diet advised [id number] Sole Mitchell APN, [employer] [facility] (Adult Med) [address] [place] [address] 08/26/2022 14:50:32 08/31/2022 13:26:08 Exposure to sexually transmissible disorder 168788831 Z20.2 no recent exposed to std,will repeat screeningh iv consent signed Underweight 374587796 R6 3.6 dwp healthy diet/weigh t Adult heal th examination 886491015 Z00.01 Encouraged patient to eat well balanced meals, live active lifestyle and attend routine vision/den tri apts. Electronic cigarette user 812227825 Z72.0 Smoking cessation encouraged . Administra tion of diphtheria, pertussis, and tetanus vaccine 817354284 Z23 Health Concerns Section Related Observation LastModified by Organization Detai ls LastModified Time None Recorded Concern Status LastModified by Organization Details LastModified Time None Recorded Advance Directives Directive N: Payers Encounter Date Sequence Insurance Name Policy Number Policy Pedroza Covered Member ID Pedroza Member ID Guarantor Name 03/26/2021 1 [facility] ON OR AFTER 01/07/21 (MEDICAID REPLACEMENT - HMO) Devang Zendejas [id number] Devang Zendejas 04/22/2021 1 [facility] ON OR AFTER 01/07/21 (MEDICAID REPLACEMENT - HMO) Devang Zendejas [id number] Devang Zendejas 05/14/2021 1 [facility] ON OR AFTER 01/07/21 (MEDICAID REPLACEMENT - HMO) Devang Zendejas [id number] Devang Zendejas 09/16/2021 1 [facility] ON OR AFTER 01/07/21 (MEDICAID REPLACEMENT - HMO) Devang Zendejas [id number] Devang Zendejas 08/26/2022 1 [facility] ON OR AFTER 01/07/21 (MEDICAID REPLACEMENT - HMO) Devang Zendejas [id number] Devang Zendejas Notes Date Note Type Note Provider Name and Address Organization Details Recorded Time 03/26/2021 text/html Here to est care, no concerns, just needs pcp. Blanche Jackson MD Attn: Accounting,[address] [facility], [place], [address], [facility] 03/26/2021 19:59:50 09/16/2021 text/html here for follow up, wants to have repeat std screening done; no recent exposure, no new symptoms Sole Mitchell APN, [employer] Attn: Accounting,[address] [facility], [place], [address], [facility] 09/16/2021 16:38:22 08/26/2022 text/html here for check up,had rash but has cleared up now;wants to have repeat std screening done; no recent exposure, no new symptoms Sole Mitchell APN, PER[employer] Attn: Accounting,[address] [facility], [place], [address], [facility] 08/26/2022 15:36:48
--- OUTSIDE RECORDS SUMMARY | 2024-08-20 19:00 | XMS_ITS | Clinical Summary ---
Author Organization [facility] Address [address] [place] [address] Phone Care Team Providers Care Kiln Mechanic Name Role Phone Sole Samaniego ARABELLA ARMSTRONG Primary Care Provider [phone] Allergies No known active allergies Medications ondansetron (ZOFRAN) 4 MG Tablet Take 1 Tablet by mouth every 8 hours as needed for Nausea - 1st line. 10 Tablet 3 Active promethazine (PHENERGAN) 25 MG Tablet Take 1 Tablet by mouth nightly as needed for Nausea - 1st line (Sleep). 20 Tablet 3 Active azithromycin (Zithromax Z-Edwar) 250 MG TabletIndicatio ns:Community Acquired Pneumonia 2 tab(s) daily for 1 day, then 1 tab(s) daily for days 2-5. Indications: Community Acquired Pneumonia 6 Tablet 5 08/20/19 25 Active Encounters Date Type Department Care Team Description 08/15/2024 11:19 PM BODY DESIGNER - 08/16/2024 12:22 AM BODY DESIGNER Emergency [facility] Emergency [address] [place] [address] Urbano Rivero MD Community acquired pneumonia Discharge Disposition: Discharged to home or Selfcare 08/15/2024 Travel from Last 3 Months Social History Tobacco Use Types Packs/Day Years Used Date Smoking Tobacco: Never Smokeless Tobacco: Never Tobacco Cessation:Counseling Given: Not Answered Alcohol Use Standard Drinks/Week Comments Never 0 (1 standard drink = 0.6 oz pur e alcohol) AUDIT-C Answer Date Recorded Q1: How often do you have a drink containing alc ohol? Never 06/09/2020 Average Number of Drinks Not on file 020 Frequency of Binge Drinking Not on file 07/2019 Sex and Gender Information Value Date Recorded Sex Assigned at Not on file Legal Sex Male 11:30 PM CDT Gender Identity Not on file Sexual Orientation Not on file Last Filed Vital Signs Vital Sign Reading Time Taken Comments Blood Pressure 113/66 08/15/2024 9:00 PM BODY DESIGNER Pulse 104 08/16/2024 12:21 AM BODY DESIGNER Temperature 38.6 C (101.5 F) 08/15/2024 9:00 PM BODY DESIGNER Respiratory Rate 15 08/16/2024 12:21 AM BODY DESIGNER Oxygen Saturation 100% 08/16/2024 12:21 AM BODY DESIGNER Inhaled Oxygen Concentration - - Weight 49.9 kg (110 lb) 08/15/2024 9:00 PM BODY DESIGNER Height 180.3 cm (5' 11 ) 08/15/2024 9:00 PM BODY DESIGNER Body Mass Index 15.34 08/15/2024 9:00 PM BODY DESIGNER Plan of Treatment Health Maintenance Due Date Last Done Comments Hepatitis C Virus (HCV) Screening 2001 Human Papillomavirus (HPV) Immunization (2 - Male 2-dose series) 08/28/2013 02/25/2013 Meningococcal B Immunization (1 of 2 - Standard) 2017 Influenza Immunization (#1) 2024 SARS-COV-2 Immunization ( season) 2024 05/14/2021, 04/22/2021 Respiratory Syncytial Virus (RSV) Immunization (Adult) (1 - 1-dose 75+ series) 2076 Hepatitis B Immunization Completed 002, 2001, 2001 Pneumococcal Immunization Combined Aged Out 08/12/2002, 2001, 2001, Additional history exists No longer eligible based on patient's age to complete this topic Meningococcal Immunization (ACWY) Aged Out 02/25/2013 No longer eligible based on patient's age to complete this topic DTaP/Tdap/Td Immunization Discontinued 2022, 02/25/2013, 11/01/2005, Additional history exists TdaP Immunization Completed 08/26/2022, 02/25/2013 Rotavirus Immunization Aged Out No lo nger eligible based on patient's age to complete this topic Procedures Procedure Name Priority Date/Time Associated Diagnosis Comments XR CHEST 2 VIEWS STAT 08/15/2024 9:40 PM BODY DESIGNER RSV,SARS-COV-2,INFL UENZA A&B BY PCR STAT 08/15/2024 9:24 PM BODY DESIGNER from Last 3 Months Results * XR CHEST 2 VIEWS (08/15/2024 9:40 PM BODY DESIGNER) Anatomical Region Laterality Modality Chest N/A Digital Radiogra phy 08/15/2024 10:1 3 PM BODY DESIGNER Impressions 08/15/2024 10:17 PM BODY DESIGNER IMPRESSION: Infiltrates in the right lower lobe and left upper lobe characteristic of bilateral pneumonia. Narrative 08/15/2024 10:17 PM BODY DESIGNER EXAM DESCRIPTION: XR CHEST 2 VIEWS REASON FOR STUDY: pain w/inspiration right sided onset today. no injury. TECHNIQUE: 2 radiographic view(s) of the chest. COMPARISON: 06/09/2020 FINDINGS: LUNGS: There ill-defined infiltrates in the right lower lobe particularly in the region of the right costophrenic angle. Additional somewhat nodular infiltrates are seen in the left upper lobe. The findings are characteristic of bilateral pneumonia. There may be a small right pleural effusion. No pneumothorax. HEART/MEDIASTINUM: Cardiac silhouette normal in size. Mediastinal and hilar contours appear normal. LINES/TUBES: None. BONES: No acute osseous abnormality. THIS IS AN ELECTRONICALLY VERIFIED FINAL REPORT 08/15/2024 10:13 PM - Electronically signed by Chin Gage M.D. KT: DREA Report ID: [id number] Reading Location: [id number] Procedure Note Chin Gage MD - 08/15/2024 EXAM DESCRIPTION: XR CHEST 2 VIEWS REASON FOR STUDY: pain w/inspiration right sided onset today. no injury. TECHNIQUE: 2 radiographic view(s) of the chest. COMPARISON: 06/09/2020 FINDINGS: LUNGS: There ill-defined infiltrates in the right lower lobe particularly in the region of the right costophrenic angle. Additional somewhat nodular infiltrates are seen in the left upper lobe. The findings are characteristic of bilateral pneumonia. There may be a small right pleural effusion. No pneumothorax. HEART/MEDIASTINUM: Cardiac silhouette normal in size. Mediastinal and hilar contours appear normal. LINES/TUBES: None. BONES: No acute osseous abnormality. THIS IS AN ELECTRONICALLY VERIFIED FINAL REPORT 08/15/2024 10:13 PM - Electronically signed by Chin Gage M.D. KT: DREA Report ID: [id number] Reading Location: [id number] IMPRESSION: Infiltrates in the right lower lobe and left upper lobe characteristic of bilateral pneumonia. Urbano Rivero MD IMG DIAGNOSTIC ORDERABLES Final Result * RSV,SARS-COV-2,INFLUENZA A&B BY PCR (08/15/2024 9:24 PM BODY DESIGNER) FLU A Negative Negative, Error 08/15/2024 10:17 PM BODY DESIGNER [facility] FLU B Negative Negative 08/15/2024 10:17 PM BODY DESIGNER [facility] RESP SYNC VIRUS Negative Negative 10:17 PM BODY DESIGNER [facility] SARSCOV2 NOT DETECTED (Reference Range for this test is Not Detected) 08/15/2024 10:17 PM BODY DESIGNER [facility] Comment:This test was perfor med by a Reverse Airborne Electronics Analyst PCR Method. Swab NASOPHARYNGEAL SWAB / Unknown Non-Phlebotomy Collection / Unknown 08/15/2024 9:24 PM BODY DESIGNER 08/15/2024 9:32 PM BODY DESIGNER Urbano Rivero MD MICROBIOLOGY - GENERAL OR DERABLES Final Result [facility] [address] [place] [address] from Last 3 Months Insurance [place] Care Teams Kiln Mechanic Relationship Specialty Start Date End Date Sole Samaniego APRN, ARABELLA [address] [place] [address] PCP - General Family Medicine 08/15/24
[2024-08-20 19:02] VITALS: BP 143/78; PULSE 82; RESP 16; TEMP 37.2; O2SAT 99
--- NOTE | 2024-08-20 19:05 | ED_ITS ---
HPI - Dental/Oral General Chief complaint: Dental/Oral Stated complaint: Toothache Time Seen by Provider: 08/20/24 19:15 Mode of arrival: ambulatory Limitations: no limitations History of Present Illness HPI Narrative: 24-year-old male presents concern for left lower dental pain. Reports pain started last night, swelling started overnight. Reports he has had abscesses in that area. He denies fever, trouble swallowing MD Complaint: tooth pain Related Data Allergies Allergy/AdvReac Type Severity Reaction Status Date / Time No Known Allergies Allergy Verified 08/20/24 19:15 Review of Systems Review of Systems: CONSTITUTIONAL: Denies malaise, chills, sweats, or fever. EYES: Denies visual changes ENT: Denies rhinorrhea, congestion, sinus pain, otalgia or sore throat. Reports left lower dental pain CARDIOVASCULAR: Denies chest pain, palpitations RESPIRATORY: Denies cough or dyspnea. SKIN: Denies rash or itching. MUSCULOSKELETAL: Denies myalgia. NEUROLOGIC: Denies numbness, weakness, or headache. All systems reviewed & are unremarkable except as noted in HPI and below PMFSH Comments At time of signature, agree with nursing past medical, surgical, social and fami ly history. There is no relevant family history pertinent to the presenting complaint Exam Narrative: GENERAL: Well-appearing, well-nourished, and in no acute distress. HEAD: Normocephalic, atraumatic. EYES: PERRLA, sclera clear ENT: Nares clear, turbinates pink, no rhinorrhea or epistaxis. Mucous membranes moist. TM pearly minaya with sharp light reflex bilaterally; no tragal tenderness. Oropharynx without erythema or lesions. Tonsils not enlarged and without exudate. Missing teeth, broken teeth, caries. Left jaw swelling noted NECK: Supple. No lymphadenopathy. CHEST: No respiratory distress. Speaks in full sentences. HEART: Regular rate and rhythm. SKIN: Warm, dry, no visible rash. NEURO: Alert and oriented x3. PSYCH: Normal mood and affect Course Course Emergency Course: Patient is aware of diagnosis, understands and agrees to treatment plan. Anticipatory guidance given. Patient agrees to follow-up as directed and is aware of reasons to seek care at the emergency department. Portions of this record may have been created with voice recognition software Level of Care: Express Care Visit Vital Signs Vital signs: Reviewed. MDM - Dental/Oral MDM Narrative Medical decision making narrative: I evaluated this in the [facility] care. History is obtained from patient who is an independent historian and physical exam was performed.? Available medical records were reviewed. ? Exam findings and relevant testing show no acute concerns or changes; patient is non-toxic appearing and is in no distress. Patients pain and complaint coupled with physical findings are consistant with dentalgia. There are no focal signs of space occupying lesions that are compromising to the airway; no dysphagia, odynophagia, dysphonia, or dyspnea. No uvular deviation or soft palate edema. Patient is non-toxic appearing. The floor of the mouth is soft with no signs of Herbert's Angina; no induration below mandible, no neck pain. Patient is without trismus or drooling and able to swallow secretions. Patient is felt appropriate for discharge home with dental follow up. ? Differential diagnosis and treatment plan were discussed with the patient. Patient agrees with discussion and after shared medical decision making agrees with plan of care. All questions were answered to the patient's satisfaction. Patient is appropriate for outpatient treatment and follow-up. Differential Diagnosis Differential diagnosis: Likely gingival abscess, dental caries, toothache, dental abscess, fracture of tooth and aphthous ulcer Critical Care Time Critical Care Time Critical Care Time: No Discharge Plan Discharge Clinical Impression: Dental abscess Patient Disposition: Home, Self-Care Condition: Stable Instructions: Antibiotic Form, Dental Abscess (ED) Additional Instructions: Take antibiotic as directed Avoid temperature extremes May apply heat or ice to the face Gentle brushing and flossing Take 2 extra strength Tylenol, 4 ibuprofen, 80 mg of caffeine at same time. You can do this every 6 hours. Do not do this for more than 2 - 3 days. You can substitute 25 mg Benadryl at nighttime for caffeine to help you sleep. Do this for no more than 3 days. Follow-up with the dentist as soon as possible - see the list provided Patient Language: Ukrainian Prescriptions: New clindamycin HCl 300 mg capsule 300 mg PO Q8H 7 Days Qty: 21 0RF Follow-up/Referrals: Danette,Sole Paez APN [Primary Care Provider] - Time of Disposition: 19:22
== END 2024-08-20 19:24 | disposition home or self-care (01) ==
PROVIDERS: Emergency Provider Nurse Practitioner; PCP Nurse Practitioner Family
DX: K04.7 Periapical abscess without sinus (principal)
CPT/HCPCS: 99213; G0463

== ENCOUNTER 2024-11-27 19:16 | Emergency (ER) | payer OTHER, SELFPAY ==
--- OUTSIDE RECORDS SUMMARY | 2024-11-27 19:19 | XMS_ITS | Clinical Summary ---
Author Organization [facility] Address [address] [place] [address] Phone Care Team Providers Care Sorting Machine Attendant Name Role Phone Danette Sole ARMSTRONG CNP Primary Care Provider [phone] [phone] Allergies No known active allergies Medications ondansetron (ZOFRAN) 4 MG Tablet Take 1 Tablet by mouth every 8 hours as needed for Nausea - 1st line. 10 Tablet 08/31/2022 Active promethazine (PHENERGAN) 25 MG Tablet Take 1 Tablet by mouth nightly as needed for Nausea - 1st line (Sleep). 20 Tablet 11/27/2022 Active Social History Tobacco Use Types Packs/Day Years [...] Comments Blood Pressure 113/66 08/15/2024 9:00 PM ADDRESSOGRAPH OPERATOR Pulse 104 08/16/2024 12:21 AM ADDRESSOGRAPH OPERATOR Temperature 38.6 C (101.5 F) 08/15/2024 9:00 PM ADDRESSOGRAPH OPERATOR Respiratory Rate 15 08/16/2024 12:21 AM ADDRESSOGRAPH OPERATOR Oxygen Saturation 100% 08/16/2024 12:21 AM ADDRESSOGRAPH OPERATOR Inhaled Oxygen Concentration - - Weight 49.9 kg (110 lb) 08/15/2024 9:00 PM ADDRESSOGRAPH OPERATOR Height 180.3 cm (5' 11 ) 08/15/2024 9:00 PM ADDRESSOGRAPH OPERATOR Body Mass Index 15.34 08/15/2024 9:00 PM ADDRESSOGRAPH OPERATOR Plan of Treatment Health Maintenance Due Date Last Done Comments Hepatitis C Virus (HCV) Screening 2001 Human Papillomavirus (HPV) Immunization (2 - Male 2-dose series) 08/28/2013 02/25/2013 Meningococcal B Immunization (1 of 2 - Standard) 2017 Influenza Immunization (#1) 2024 SARS-COV-2 Immunization (3 - season) 2024 05/14/2021, 04/22/2021 Respiratory Syncytial Virus [...] on patient's age to complete this topic Insurance [place] [employer] Care Teams Sorting Machine Attendant Relationship Specialty Start Date End Date Sole Samaniego APRN, ARABELLA [address] [place] [id number] PCP - General Family Medicine 08/15/24
--- OUTSIDE RECORDS SUMMARY | 2024-11-27 19:19 | XMS_ITS | Data Portability ---
Author Organization [facility] Address [address] [address] Care Team Providers Care Frame Opener Name Role Phone MITCHELL, SOLE Primary Care Provider [phone] Assessment No assessment recorded. Plan of Treatment Reminders Order Date Submit Date Provider Last Modified By Organization Details Last Modified Time Details Appointments None recorded. Lab RPR (rapid plasma reagin), serum 2024 025 [facility], [address] [place] [address], [address], 5 20:09:25 CT + NG RNA, PCR, unspecified specimen 2024 025 [facility], [address] [place] [address], [address], 5 20:09:19 hepatitis B surface Ab, qualitative , serum 2024 025 [facility], [address] [place] [address], [address], 5 20:09:24 Hepatitis C IgG Ab, qual, serum 2024 025 [facility], [address] [place] [address], [place], [address], 5 20:09:17 herpes simplex virus 1 + 2 IgG panel, serum or plasma 2024 025 [facility], [address] [place] [address], [address], 5 20:09:18 HIV 1 + 2, meaningful use set 2024 025 [facility], [address] [place] [address], [facility], [place], [address], 5 20:09:28 TSH, ultra-sensi tive, serum 2024 025 [facility], [address], [place], [address], 5 20:09:23 CMP, serum or plasma 2024 025 [facility], [address], [place], [address], 5 20:09:22 lipid panel, serum 2024 025 [facility], [address], [place], [address], 5 20:09:20 CBC 2024 025 [facility], [address], [place], [address], 5 20:09:27 TSH, ultra-sensi tive, serum 2022 023 [facility], [address], [place], [address], 3 07:08:33 CMP, serum or plasma 2022 023 [facility], [address], [place], [address], 3 03:08:20 lipid panel, serum 2022 023 [facility], [address], [place], [address], 3 03:08:20 CBC 2022 023 [facility], [address], [place], [address], 3 03:08:21 CT + NG RNA, PCR, unspecified specimen 2022 023 [facility], [address], [facility], [place], [address], 3 07:08:32 hsv (1+2) igg Ab, serum 2022 023 [facility], [address], [facility], [place], [address], 3 07:08:31 hepatitis C Ab, signal-to-c utoff, serum or plasma 2022 023 [facility], [address], [facility], [place], [address], 3 07:08:31 hepatitis B surface Ab, qualitative , serum 2022 023 [facility], [address], [facility], [place], [address], 3 07:08:33 RPR (rapid plasma reagin), serum 2022 023 [facility], [address], [address], [place], [address], 3 07:08:34 HIV 1 + 2, meaningful use set 2022 023 [facility], [address], [facility], [place], [address], 3 07:08:34 CT + NG RNA, PCR, unspecified specimen 2021 022 [facility], [address], [place], [address], 03:08:06 hsv (1+2) igg Ab, serum 2021 022 [facility], [address], [place], [address], 03:08:07 hepatitis C Ab, signal-to-c utoff, serum or plasma 2021 022 [facility], [address], [place], [address], 03:08:09 hepatitis B surface Ab, qualitative , serum 2021 022 [facility], [address], [place], [address], 03:08:07 RPR (rapid plasma reagin), serum 2021 022 [facility], [address], [address], [place], [address], 03:08:08 HIV 1 + 2, meaningful use set 2021 022 [facility], [address] [facility] [facility], [place], [address], 03:08:08 Referral None recorded. Procedures None recorded. Surgeries None recorded. Imaging None recorded. Medication Orders None recorded. Patient TargetsNo targets recorded. Patient Instructions Encounter Date Encounter Id Patient Instructions Last Modified By Organization Details Last Modified Time 09/16/2021 [id number] learning about healthy weight Not available 09/16/2021 [...] with provider Not available 09/16/2021 16:37:57 08/26/2022 [id number] tetanus and diphtheria booster: care instructions Not [...] established with provider Not available 08/26/2022 15:07:13 08/26/2024 [id number] hemorrhoids: car e instructions Not available 08/26/2024 14:34:35 learning about vaping Not available 08/26/2024 14:33:23 eating healthy foods: care instructions Not available 08/26/2024 14:33:23 Increase intake of fresh fruits, and vegetables. Avoid packaged foods and fast foods. Follow a low salt diet, drink at least 8-10 8oz glasses of water a day, exercise most days of the week. Take all medications as prescribed. Keep appointments with PCP and all specialists. Not available 08/26/2024 14:33:07 follow up as needed, yearly to keep established with provider Not available 08/26/2024 14:33:15 Reason for Referral None Reported. Results Created Date Observation Date Name Description Value Unit Range Abnormal Flag Note LastModifiedBy Organization Detail LastModifiedTime 04/15/20 21 04/16/2021 COMP. METAB OLIC PANEL (14) glucose 84 mg/dL 65-99 Not Available [facility] ([facility]) [address], [place], [address], 04/16/2021 09:13:09 04/15/20 21 04/16/2021 COMP. METAB OLIC PANEL (14) BUN 13 mg/dL 6-20 Not Available [facility] ([facility]) [address], [place], [address], 04/16/2021 09:13:09 04/15/20 21 04/16/2021 COMP. METAB OLIC PANEL (14) creatinine 1.14 mg/dL 0.76-1 .27 Not Available [facility] ([facility]) [address], [place], [address], 04/16/2021 09:13:09 04/15/20 21 04/16/2021 COMP. METAB OLIC PANEL (14) eGFR if nonafricn AM 93 mL/mi n/1.7 3 >59 Not Available [facility] ([facility]) [address], [place], [address], 04/16/2021 09:13:09 04/15/20 21 04/16/2021 COMP. METAB [...] SN Task force . Not Available [facility] ([facility]) [address], [place], [address], 04/16/2021 09:13:09 04/15/20 21 04/16/2021 COMP. METAB OLIC PANEL (14) BUN/creatini ne ratio 11 9-20 Not Available [facility] ([facility]) [address] [place], [address], 04/16/2021 09:13:09 04/15/20 21 04/16/2021 COMP. METAB OLIC PANEL (14) sodium 141 mmol/ L 134-14 4 Not Available [facility] ([facility]) [address] [place], [address], 04/16/2021 09:13:09 04/15/20 21 04/16/2021 COMP. METAB OLIC PANEL (14) potassium 4.4 mmol/ L 3.5-5. 2 Not Available [facility] ([facility]) [address] [place], [address], 04/16/2021 09:13:09 04/15/20 21 04/16/2021 COMP. METAB OLIC PANEL (14) chloride 103 mmol/ L 96-106 Not Available [facility] ([facility]) [address] [facility] [place], [address], 04/16/2021 09:13:09 04/15/20 21 04/16/2021 COMP. METAB OLIC PANEL (14) carbon dioxide, total 25 mmol/ L 20-29 Not Available [facility] ([facility]) [address] [facility] [place], [address], 04/16/2021 09:13:09 04/15/20 21 04/16/2021 COMP. METAB OLIC PANEL (14) calcium 9.5 mg/dL 8.7-10 .2 Not Available [facility] ([facility]) [address] [facility] [place], [address], 04/16/2021 09:13:09 04/15/20 21 04/16/2021 COMP. METAB OLIC PANEL (14) protein, total 7.2 g/dL 6.0-8. 5 Not Available [facility] ([facility]) [address] [facility] [place], [address], 04/16/2021 09:13:09 04/15/20 21 04/16/2021 COMP. METAB OLIC PANEL (14) albumin 4.7 g/dL 4.1-5. 2 Not Available [facility] ([facility]) [address], [place], [address], 04/16/2021 09:13:09 04/15/20 21 04/16/2021 COMP. METAB OLIC PANEL (14) globulin, total 2.5 g/dL 1.5-4. 5 Not Available [facility] ([facility]) [address] [address], [place], [address], 04/16/2021 09:13:09 04/15/20 21 04/16/2021 COMP. METAB OLIC PANEL (14) A/G ratio 1.9 1.2-2. 2 Not Available [facility] ([facility]) [address] [address], [place], [address], 04/16/2021 09:13:09 04/15/20 21 04/16/2021 COMP. METAB OLIC PANEL (14) bilirubin, total 0.3 mg/dL 0.0-1. 2 Not Available [facility] ([facility]) [address], [place], [address], 04/16/2021 09:13:09 04/15/20 21 04/16/2021 COMP. METAB OLIC PANEL (14) alkaline phosphatase 71 IU/L 51-125 Ple ase note refer ence inter rebel moody e Not Available [facility] ([facility]) [address] [facility] [place], [address], 04/16/2021 09:13:09 04/15/20 21 04/16/2021 COMP. METAB OLIC PANEL (14) AST (SGOT) 15 IU/L 0-40 Not Available [facility] ([facility]) [address], [place], [address], 04/16/2021 09:13:09 04/15/20 21 04/16/2021 COMP. METAB OLIC PANEL (14) ALT (SGPT) 11 IU/L 0-44 Not Available [facility] ([facility]) [address], [place], [address], 04/16/2021 09:13:09 04/15/20 21 04/16/2021 CBC, NO DIFFE RENTI AL/PL ATELE T WBC 6.2 x10e3 /uL 3.4-10 .8 Not Available [facility] ([facility]) [address], [place], [address], 04/16/2021 09:13:10 04/15/20 21 04/16/2021 CBC, NO DIFFE RENTI AL/PL ATELE T RBC 4.65 x10e6 /uL 4.14-5 .80 Not Available [facility] ([facility]) [address] [address], [place], [address], 04/16/2021 09:13:10 04/15/20 21 04/16/2021 CBC, NO DIFFE RENTI AL/PL ATELE T hemoglobin 15.0 g/dL 13.0-1 7.7 Not Available [facility] ([facility]) [address], [place], [address], 04/16/2021 09:13:10 04/15/20 21 04/16/2021 CBC, NO DIFFE RENTI AL/PL ATELE T hematocrit 42.4 % 37.5-5 1.0 Not Available [facility] ([facility]) [address] [place], [address], 04/16/2021 09:13:10 04/15/2004/16/2021 CBC, NO DIFFE RENTI AL/PL ATELE T MCV 91 fL 79-97 Not Available [facility] ([facility]) [address] [place], [address], 04/16/2021 09:13:10 04/15/20 21 04/16/2021 CBC, NO DIFFE RENTI AL/PL ATELE T MCH 32.3 pg 26.6-3 3.0 Not Available [facility] ([facility]) [address], [place], [address], 04/16/2021 09:13:10 04/15/20 21 04/16/2021 CBC, NO DIFFE RENTI AL/PL ATELE T MCHC 35.4 g/dL 31.5-3 5.7 Not Available [facility] ([facility]) [address] [place], [address], 04/16/2021 09:13:10 04/15/20 21 04/16/2021 CBC, NO DIFFE RENTI AL/PL ATELE T RDW 11.3 % 11.6-1 5.4 below low normal Not Available [facility] ([facility]) [address] [place], [address], 04/16/2021 09:13:10 04/15/20 21 04/16/2021 CBC, NO DIFFE RENTI AL/PL ATELE T NRBC [employer]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 Not Available [facility] ([facility]) [address] [place], [address], 04/16/2021 09:13:10 04/15/20 21 04/16/2021 LIPID PANEL cholesterol, total 126 mg/dL 100-16 9 Not Available [facility] ([facility]) [address] [place], [address], 04/16/2021 09:13:11 04/15/20 21 04/16/2021 LIPID PANEL triglyceride s 89 mg/dL 0-89 Not Available [facility] ([facility]) [address] [place], [address], 04/16/2021 09:13:11 04/15/20 21 04/16/2021 LIPID PANEL HDL cholesterol 45 mg/dL >39 Not Available [facility] ([facility]) [address], [place], [address], 04/16/2021 09:13:11 04/15/20 21 04/16/2021 LIPID PANEL VLDL cholesterol johny 17 mg/dL 5-40 Not Available [facility] ([facility]) [address], [place], [address], 04/16/2021 09:13:11 04/15/20 21 04/16/2021 LIPID PANEL LDL chol calc ([facility]) 64 mg/dL 0-109 Not Available [facility] ([facility]) [address], [place], [address], 04/16/2021 09:13:11 04/15/20 21 04/16/2021 LIPID PANEL 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 6 Predi abete s: 5.7 - 6.4 Diabe madhu: >6.4 Glyce alessandro contr ol for adult s with diabe madhu: <7.0 Not Available [facility] ([facility]) [address] [address], [place], [address], 04/16/2021 09:13:12 04/15/2004/16/2021 TSH RFX ON ABNOR MAL TO FREE T4 TSH 1.360 uIU/m L 0.450- 4.500 Not Available [facility] ([facility]) [address] [address], [place], [address], 04/16/2021 09:13:13 05/20/20 21 05/22/2021 CHLAM YDIA/ GC AMPLI FICAT ION chlamydia trachomatis, JARED Positi ve negati ve abnormal Not Available [facility] ([facility]) [address], [place], [address], 05/22/2021 03:07:43 05/20/2005/22/2021 CHLAM YDIA/ GC AMPLI FICAT ION neisseria gonorrhoeae, JARED Negati ve negati ve Not Available [facility] ([facility]) [address], [place], [address], 05/22/2021 03:07:43 05/20/20 21 2021 HSV 1 AND 2-SPE C AB, IGG W/RFX hsv 1 IgG, type spec <0.91 index 0.00-0 .90 Negat [place] <0.91 Equiv ocal 0.91 - 1.09 Posit [place] >1.09 Note: Negat [place] indic ates no antib odies detec mynor to HSV-1 . Equiv ocal may sugge st early infec tion. If clini marilynn appro priat e, retes t at later date. Posit [place] indic ates antib odies detec mynor to HSV-1 . Not Available [facility] ([facility]) [address] [address], [place], [address], 05/22/2021 03:07:44 05/20/20 21 2021 HSV 1 AND 2-SPE C AB, IGG W/RFX hsv 2 IgG, type spec <0.91 index 0.00-0 .90 Negat [place] <0.91 Equiv ocal 0.91 - 1.09 Posit [place] >1.09 Note: Negat [place] indic ates no antib odies detec mynor to HSV-2 . Equiv ocal may sugge st early infec tion. If clini marilynn appro priat e, retes t at later date. Posit [place] indic ates antib odies detec mynor to HSV-2 . Not Available [facility] ([facility]) [address] [address], [place], [address], 05/22/2021 03:07:44 05/20/2005/21/2021 HEP B SURFA CE AB hep B surface Ab, qual Non Reacti ve Non React [place]: Incon siste nt with immun ity, less than 10 mIU/m L React [place]: Consi stent with immun ity, great er than 9.9 mIU/m L Not Available [facility] ([facility]) [address] [facility] [address] [address], [place], [address], 05/22/2021 03:07:45 05/20/20 21 2021 RPR, RFX QN RPR/C ONFIR M TP RPR Non Reacti ve non reacti ve Not Available [facility] ([facility]) [address] [address], [place], [address], 05/22/2021 03:07:46 05/20/20 21 2021 HIV AG/AB WITH REFLE X HIV screen 4TH generation wrfx Non Reacti ve non reacti ve Not Available [facility] ([facility]) [address] [address] [facility] [address], [place], [address], 05/22/2021 03:07:46 05/20/20 21 2021 HCV ANTIB MAYRA hep C virus Ab <0.1 s/co_ ratio 0.0-0. 9 Negat [place]: < 0.8 Indet ermin ate: 0.8 - 0.9 Posit [place]: > 0.9 The CDC recom mends that a posit [place] HCV antib mayra resul t be follo wed up with a HCV Nucle ic Acid Ampli ficat ion test (5507 13). Not Available [facility] ([facility]) [address], [place], [address], 05/22/2021 03:07:47 09/17/19 22 09/17/2021 CHLAM YDIA/ GC AMPLI FICAT ION chlamydia trachomatis, JARED NEGATI VE negati ve Not Available [facility] ([facility]) [address] [address], [place], [address], 09/18/2021 03:08:06 09/17/19 22 09/17/2021 CHLAM YDIA/ GC AMPLI FICAT ION neisseria gonorrhoeae, JARED NEGATI VE negati ve Not Available [facility] ([facility]) [address] [address], [place], [address], 09/18/2021 03:08:06 09/17/19 22 09/17/2021 HSV 1 AND 2-SPE C AB, IGG W/RFX hsv 1 IgG, type spec <0.91 index 0.00-0 .90 Negat [place] <0.91 Equiv ocal 0.91 - 1.09 Posit [place] >1.09 Note: Negat [place] indic ates no antib odies detec mynor to HSV-1 . Equiv ocal may sugge st early infec tion. If clini marilynn appro priat e, retes t at later date. Posit [place] indic ates antib odies detec mynor to HSV-1 . Not Available [facility] ([facility]) [address] [address], [place], [address], 09/18/2021 03:08:07 09/17/19 22 09/17/2021 HSV 1 AND 2-SPE C AB, IGG W/RFX hsv 2 IgG, type spec <0.91 index 0.00-0 .90 Negat [place] <0.91 Equiv ocal 0.91 - 1.09 Posit [place] >1.09 Note: Negat [place] indic ates no HSV-2 antib odies detec mynor. Posit [place] indic ates HSV-2 antib odies detec mynor. Equiv ocal and low posit [place] HSV-2 scree ns (Inde x 0.91- 5.00) may be false posit [place] and are refle xed to suppl true chavez in accor dance with CDC guide lines . Not Available [facility] ([facility]) [address] [facility] [address] [address], [place], [address], 09/18/2021 03:08:07 09/17/19 22 09/17/2021 HEP B SURFA CE AB hep B surface Ab, qual NON REACTI VE Non React [place]: Incon siste nt with immun ity, less than 10 mIU/m L React [place]: Consi stent with immun ity, great er than 9.9 mIU/m L Not Available [facility] ([facility]) [address] [facility] [address], [place], [address], 09/18/2021 03:08:07 09/17/19 22 09/17/2021 RPR, RFX QN RPR/C ONFIR M TP RPR NON REACTI VE non reacti ve Not Available [facility] ([facility]) [address] [facility] [address], [place], [address], 09/18/2021 03:08:08 09/17/19 22 09/17/2021 HIV AB/P2 4 AG WITH REFLE X HIV Ab/P24 Ag screen NON REACTI VE non reacti ve HIV Negat [place] HIV-1 /HIV- 2 antib odies and HIV-1 p24 antig en were NOT detec mynor. There is no labor atory evide nce of HIV infec tion. Not Available [facility] ([facility]) [address], [place], [address], 09/18/2021 03:08:08 09/17/19 22 09/17/2021 HCV ANTIB MAYRA hep C virus Ab <0.1 s/co_ ratio 0.0-0. 9 Negat [place]: < 0.8 Indet ermin ate: 0.8 - 0.9 Posit [place]: > 0.9 The CDC recom mends that a posit [place] HCV antib mayra resul t be follo wed up with a HCV Nucle ic Acid Ampli ficat ion test (5508 13). Not Available [facility] ([facility]) [address] [facility] [address], [place], [address], 09/18/2021 03:08:09 08/26/19 23 08/26/2022 LIPID PANEL cholesterol, total 135.9 mg/dL 140.0- 200.0 below low normal Not Available [facility] [address] [place], [address], 08/27/2022 03:08:20 08/26/19 23 08/26/2022 LIPID PANEL triglyceride s 53 mg/dL <=150 Not Available [facility] Department [address] [place], [address], 08/27/2022 03:08:20 08/26/19 23 08/26/2022 LIPID PANEL HDL cholesterol 53.0 mg/dL 40.0-1 00.0 Not Available [facility] Department [address] [place], [address], 08/27/2022 03:08:20 08/26/19 23 08/26/2022 LIPID PANEL VLDL cholesterol johny 10.60 mg/dL 5.00-4 0.00 Not Available [facility] Department [address] [place] [address], [address], 08/27/2022 03:08:20 08/26/19 23 08/26/2022 LIPID PANEL LDL chol calc ([facility]) 71.3 Not Available [facility] Department [address] [place], [address], 08/27/2022 03:08:20 08/26/19 23 08/26/2022 COMP. METAB OLIC PANEL (14) glucose 89 mg/dL 65-99 ANION GP 16.0 mmol/ L N OSMOL 279.0 mOsM/ L N REFER ENCE RANGE : 275.0 -301. 0 Not Available [facility] Department [address] [place], [address], 08/27/2022 03:08:20 08/26/19 23 08/26/2022 COMP. METAB OLIC PANEL (14) BUN 11 mg/dL 8-26 Not Available [facility] Department [address] [place], [address], 08/27/2022 03:08:20 08/26/19 23 08/26/2022 COMP. METAB OLIC PANEL (14) creatinine 0.99 mg/dL 0.50-1 .40 Not Available [facility] Department [address] [place], [address], 08/27/2022 03:08:20 08/26/19 23 08/26/2022 COMP. METAB OLIC PANEL (14) eGFR 111 mL/mi n/1.7 3 >=60 Not Available [facility] Department [address] [place], [address], 08/27/2022 03:08:20 08/26/19 23 08/26/2022 COMP. METAB OLIC PANEL (14) BUN/creatini ne ratio 11.2 Not Available [facility] Department [address] [place], [address], 08/27/2022 03:08:20 08/26/19 23 08/26/2022 COMP. METAB OLIC PANEL (14) sodium 140.3 mmol/ L 136.0- 144.0 Not Available [facility] Department [address] [place], [address], 08/27/2022 03:08:20 08/26/19 23 08/26/2022 COMP. METAB OLIC PANEL (14) potassium 5.0 mmol/ L 3.5-5. 3 Not Available [facility] Department [address] [place] [address], [address], 08/27/2022 03:08:20 08/26/19 23 08/26/2022 COMP. METAB OLIC PANEL (14) chloride 104 mmol/ l 101-11 1 Not Available [facility] Department [address] [place] [address], [address], 08/27/2022 03:08:20 08/26/19 23 08/26/2022 COMP. METAB OLIC PANEL (14) carbon dioxide, total 24.9 mmol/ L 21.0-3 2.0 Not Available [facility] Department [address] [place] [address], [address], 08/27/2022 03:08:20 08/26/19 23 08/26/2022 COMP. METAB OLIC PANEL (14) calcium 9.9 mg/dL 8.2-10 .0 Not Available [facility] Department [address] [place], [address], 08/27/2022 03:08:20 08/26/19 23 08/26/2022 COMP. METAB OLIC PANEL (14) protein, total 7.9 g/dL 6.7-8. 2 Not Available [facility] Department [address] [place], [address], 08/27/2022 03:08:20 08/26/19 23 08/26/2022 COMP. METAB OLIC PANEL (14) albumin 5.1 g/dL 3.5-5. 5 Not Available [facility] Department [address] [place], [address], 08/27/2022 03:08:20 08/26/19 23 08/26/2022 COMP. METAB OLIC PANEL (14) globulin, total 2.8 g/dL 1.5-4. 5 Not Available [facility] Department [address] [place], [address], 08/27/2022 03:08:20 08/26/19 23 08/26/2022 COMP. METAB OLIC PANEL (14) A/G ratio 1.8 Not Available [facility] Department [address] [place], [address], 08/27/2022 03:08:20 08/26/19 23 08/26/2022 COMP. METAB OLIC PANEL (14) bilirubin, total 0.6 mg/dL 0.0-1. 2 Not Available [facility] Department [address] [place], [address], 08/27/2022 03:08:20 08/26/19 23 08/26/2022 COMP. METAB OLIC PANEL (14) alkaline phosphatase 61.4 IU/L 42.0-1 21.0 Not Available [facility] Department [address] [place], [address], 08/27/2022 03:08:20 08/26/19 23 08/26/2022 COMP. METAB OLIC PANEL (14) AST (SGOT) 14.2 U/L 10.0-4 2.0 Not Available [facility] Department [address] [place], [address], 08/27/2022 03:08:20 08/26/19 23 08/26/2022 COMP. METAB OLIC PANEL (14) ALT (SGPT) 7.8 U/L 10.0-6 0.0 below low normal Not Available [facility] Department [address] [place], [address], 08/27/2022 03:08:20 08/26/19 23 08/26/2022 CBC, NO DIFFE RENTI AL/PL ATELE T WBC 5.7 K/uL 3.4-10 .8 Not Available [facility] Department [address] [place], [address], 08/27/2022 03:08:21 08/26/19 23 08/26/2022 CBC, NO DIFFE RENTI AL/PL ATELE T RBC 4.8 M/uL 4.5-6. 3 Not Available [facility] Department [address] [place], [address], 08/27/2022 03:08:21 08/26/19 23 08/26/2022 CBC, NO DIFFE RENTI AL/PL ATELE T hemoglobin 15.2 g/dL 13.5-1 7.5 Not Available [facility] Department [address] [place], [address], 08/27/2022 03:08:21 08/26/19 23 08/26/2022 CBC, NO DIFFE RENTI AL/PL ATELE T hematocrit 44.6 % 40.0-5 2.0 Not Available [facility] [address] [place], [address], 08/27/2022 03:08:21 08/26/19 23 08/26/2022 CBC, NO DIFFE RENTI AL/PL ATELE T MCV 94 fL 80-95 Not Available [facility] Department [address] [place], [address], 08/27/2022 03:08:21 08/26/19 23 08/26/2022 CBC, NO DIFFE RENTI AL/PL ATELE T MCH 32 pg 27-32 Not Available [facility] Department [address] [place], [address], 08/27/2022 03:08:21 08/26/19 23 08/26/2022 CBC, NO DIFFE RENTI AL/PL ATELE T MCHC 34 g/dL 32-36 Not Available [facility] Department [address] [place], [address], 08/27/2022 03:08:21 08/26/19 23 08/26/2022 CBC, NO DIFFE RENTI AL/PL ATELE T RDW 11.4 % 11.5-1 4.5 below low normal Not Available [facility] Department [address] [place], [address], 08/27/2022 03:08:21 08/26/1908/27/2022 HCV ANTIB MAYRA CASCA DE(PC R/GEN O) HCV Ab Non Reacti ve nonrea ctive Not Available [facility] ([facility]) [address] [facility], [place], [address], 08/28/2022 07:08:31 08/26/1908/27/2022 HSV 1 AND 2-SPE C AB, IGG W/RFX hsv 1 IgG, type spec <0.91 Negat wellington <0.91 Equiv ocal 0.91 - 1.09 Posit wellington >1.09 Note: Negat wellington indic ates no antib odies detec mynor to HSV-1 . Equiv ocal may sugge st early infec tion. If clini marilynn appro priat e, retes t at later date. Posit wellington indic ates antib odies detec mynor to HSV-1 . Not Available [facility] ([facility]) [address] [facility], [place], [address], 08/28/2022 07:08:31 08/26/19 23 08/27/2022 HSV 1 AND 2-SPE C AB, IGG W/RFX hsv 2 IgG, type spec <0.91 Negat [place] <0.91 Equiv ocal 0.91 - 1.09 Posit wellington >1.09 Note: Negat wellington indic ates no HSV-2 antib odies detec mynor. Posit well[place] indic ates HSV-2 antib odies detec mynor. Equiv ocal and low posit wellington HSV-2 scree ns (Inde x 0.91- 5.00) may be false posit wellington and are refle xed to suppl true chavez in accor dance with CDC guide lines . Not Available [facility] ([facility]) [address] [place], [address], 08/28/2022 07:08:31 08/26/1908/28/2022 CHLAM YDIA/ GC AMPLI FICAT ION chlamydia trachomatis, JARED Negati ve negati ve Not Available [facility] ([facility]) [address] [place], [address], 08/28/2022 07:08:32 08/26/19 23 08/28/2022 CHLAM YDIA/ GC AMPLI FICAT ION neisseria gonorrhoeae, JARED Negati ve negati ve Not Available [facility] ([facility]) [address] [place], [address], 08/28/2022 07:08:32 08/26/19 23 08/27/2022 TSH RFX ON ABNOR MAL TO FREE T4 TSH 0.744 uIU/m L 0.450- 4.500 Not Available [facility] ([facility]) [address] [facility], [place], [address], 08/28/2022 07:08:33 08/26/19 23 08/27/2022 HEP B SURFA CE AB hep B surface Ab, qual Non Reacti ve Non React wellington: Incon siste nt with immun ity, less than 10 mIU/m L React wellington: Consi stent with immun ity, great er than 9.9 mIU/m L Not Available [facility] ([facility]) [address] [facility], [place], [address], 08/28/2022 07:08:33 08/26/19 23 08/27/2022 RPR, RFX QN RPR/C ONFIR M TP RPR Non Reacti ve nonrea ctive Not Available [facility] ([facility]) [address] [facility], [place], [address], 08/28/2022 07:08:34 08/26/19 23 08/27/2022 HIV AB/P2 4 AG WITH REFLE X HIV Ab/P24 Ag screen Non Reacti ve nonrea ctive HIV Negat wellington HIV-1 /HIV- 2 antib odies and HIV-1 p24 antig en were NOT detec mynor. There is no labor atory evide nce of HIV infec tion. Not Available [facility] ([facility]) [address] [facility], [place], [address], 08/28/2022 07:08:34 08/26/19 23 08/27/2022 INTER PRETA TION: interpretati on: Commen t Not infec mynor with HCV unles s early or acute infec tion is suspe cted (whic h may be delay ed in an immun ocomp romis ed indiv idual ), or other evide nce exist s to indic ate HCV infec tion. Not Available [facility] ([facility]) [address] [facility], [place], [address], 08/28/2022 07:08:30 08/15/19 25 08/15/2024 Influ effie virus A and B and SARS- CoV-2 (COVI D-19) and Respi rator y syncy tial virus RNA panel - Respi rator y syste m speci men by JARED with probe detec tion influenza virus A RNA [presence] in upper respiratory specimen by JARED with probe detection Negati ve text: negati ve, error FLU A Negat wellington Negat wellington, Error 08/15 10:17 PM [facility] Not Available Not Available 08/23/2024 07:45:27 08/15/19 25 08/15/2024 Influ effie virus A and B and SARS- CoV-2 (COVI D-19) and Respi rator y syncy tial virus RNA panel - Respi rator y syste m speci men by JARED with probe detec tion influenza virus B RNA [presence] in upper respiratory specimen by JARED with probe detection Negati ve text: negati ve FLU B Negat wellington Negat wellington 08/15 10:17 PM [facility] Not Available Not Available 08/23/2024 07:45:27 08/15/19 25 08/15/2024 Influ effie virus A and B and SARS- CoV-2 (COVI D-19) and Respi rator y syncy tial virus RNA panel - Respi rator y syste m speci men by JARED with probe detec tion respiratory syncytial virus RNA [presence] in respiratory system specimen by JARED with probe detection Negati ve text: negati ve RESP SYNC VIRUS Negat wellington Negat wellington 08/15 10:17 PM [facility] Not Available Not Available 08/23/2024 07:45:27 08/15/19 25 08/15/2024 Influ effie virus A and B and SARS- CoV-2 (COVI D-19) and Respi rator y syncy tial virus RNA panel - Respi rator y syste m speci men by JARED with probe detec tion sars-cov-2 (covid-19) N gene [presence] in specimen by JARED with probe detection NOT DETECT ED text: (refer ence range for this test IS not detect ed) SARSC OV2 NOT DETEC MYNOR (Refe rence Range for this test is Not Detec mynor) 08/15 10:17 PM [facility] Not Available Not Available 08/23/2024 07:45:27 08/15/1908/15/2024 Influ effie virus A and B and SARS- CoV-2 (COVI D-19) and Respi rator y syncy tial virus RNA panel - Respi rator y syste m speci men by JARED with probe detec tion interpretati on and review of laboratory results Normal Not Available Not Available 08/10 07:45:27 08/26/1908/27/2024 INTER PRETA TION: interpretati on: Commen t Not infec mynor with HCV unles s early or acute infec tion is suspe cted (whic h may be delay ed in an immun ocomp romis ed indiv idual ), or other evide nce exist s to indic ate HCV infec tion. Not Available [facility] ([facility]) [address] [facility], [place], [address], 08/27/2024 20:09:16 08/26/19 25 08/27/2024 HCV ANTIB MAYRA RFX TO QUANT PCR HCV Ab NON REACTI VE nonrea ctive Not Available [facility] ([facility]) [address] [facility], [place], [address], 08/27/2024 20:09:17 08/26/19 25 08/27/2024 HSV 1 AND 2 AB, IGG hsv 1 IgG, type spec NON REACTI VE nonrea ctive Ple ase note refer ence inter rebel moody e HSV-1 IgG testi ng perfo rmed using the [employer] HSV-1 IgG assay . Not Available [facility] ([facility]) [address] [facility], [place], [address], 08/27/2024 20:09:18 08/26/19 25 08/27/2024 HSV 1 AND 2 AB, IGG hsv 2 IgG, type spec NON REACTI VE nonrea ctive Ple ase note refer ence inter rebel moody e Curre nt guide lines and recom menda tions do not recom mend routi ne scree paty for HSV-2 in asymp tomat ic indiv idual s, inclu ding those that are pregn ant. The detec tion of HSV-2 IgG antib odies in a singl e sampl e indic ates previ ous expos ure to HSV-2 but does not give infor matio n as to the site of HSV infec tion or the timin g of expos ure. The predi ctive value of posit wellington and negat wellington resul ts depen ds on the popul ation 's preva lence and the prete st likel ihood of HSV-2 . HSV-2 IgG testi ng perfo rmed using the [employer] HSV-2 IgG assay . Not Available [facility] ([facility]) [address] [place], [address], 08/27/2024 20:09:18 08/26/19 25 08/27/2024 CHLAM YDIA/ GC AMPLI FICAT ION chlamydia trachomatis, JARED NEGATI VE negati ve Not Available [facility] ([facility]) [address] [place], [address], 08/27/2024 20:09:19 08/26/19 25 08/27/2024 CHLAM YDIA/ GC AMPLI FICAT ION neisseria gonorrhoeae, JARED NEGATI VE negati ve Not Available [facility] ([facility]) [address] [place], [address], 08/27/2024 20:09:19 08/26/19 25 08/27/2024 LIPID PANEL cholesterol, total 120 mg/dL 100-19 9 Not Available [facility] ([facility]) [address] [place], [address], 08/27/2024 20:09:20 08/26/19 25 08/27/2024 LIPID PANEL triglyceride s 100 mg/dL 0-149 Not Available [facility] ([facility]) [address] [place], [address], 08/27/2024 20:09:20 08/26/19 25 08/27/2024 LIPID PANEL HDL cholesterol 37 mg/dL >39 below low normal Not Available [facility] ([facility]) [address] [place], [address], 08/27/2024 20:09:20 08/26/19 25 08/27/2024 LIPID PANEL VLDL cholesterol johny 19 mg/dL 5-40 Not Available [facility] ([facility]) [address] [place], [address], 08/27/2024 20:09:20 08/26/19 25 08/27/2024 LIPID PANEL LDL chol calc ([facility]) 64 mg/dL 0-99 Not Available [facility] ([facility]) [address] [place], [address], 08/27/2024 20:09:20 08/26/19 25 08/27/2024 COMP. METAB OLIC PANEL (14) glucose 64 mg/dL 70-99 below low normal Not Available [facility] ([facility]) [address] [place], [address], 08/27/2024 20:09:22 08/26/19 25 08/27/2024 COMP. METAB OLIC PANEL (14) BUN 13 mg/dL 6-20 Not Available [facility] ([facility]) [address] [place], [address], 08/27/2024 20:09:22 08/26/19 25 08/27/2024 COMP. METAB OLIC PANEL (14) creatinine 0.90 mg/dL 0.76-1 .27 Not Available [facility] ([facility]) [address], [place], [address], 08/27/2024 20:09:22 08/26/19 25 08/27/2024 COMP. METAB OLIC PANEL (14) eGFR 123 mL/mi n/1.7 3 >59 Not Available [facility] ([facility]) [address], [place], [address], 08/27/2024 20:09:22 08/26/19 25 08/27/2024 COMP. METAB OLIC PANEL (14) BUN/creatini ne ratio 14 9-20 Not Available [facility] ([facility]) [address] [facility], [place], [address], 08/27/2024 20:09:22 08/26/19 25 08/27/2024 COMP. METAB OLIC PANEL (14) sodium 137 mmol/ L 134-14 4 Not Available [facility] ([facility]) [address] [facility], [place], [address], 08/27/2024 20:09:22 08/26/19 25 08/27/2024 COMP. METAB OLIC PANEL (14) potassium 4.4 mmol/ L 3.5-5. 2 Not Available [facility] ([facility]) [address] [facility], [place], [address], 08/27/2024 20:09:22 08/26/19 25 08/27/2024 COMP. METAB OLIC PANEL (14) chloride 99 mmol/ L 96-106 Not Available [facility] ([facility]) [address] [facility] [place], [address], 08/27/2024 20:09:22 08/26/19 25 08/27/2024 COMP. METAB OLIC PANEL (14) carbon dioxide, total 27 mmol/ L 20-29 Not Available [facility] ([facility]) [address] [facility], [place], [address], 08/27/2024 20:09:22 08/26/19 25 08/27/2024 COMP. METAB OLIC PANEL (14) calcium 9.2 mg/dL 8.7-10 .2 Not Available [facility] ([facility]) [address] [facility] [place], [address], 08/27/2024 20:09:22 08/26/19 25 08/27/2024 COMP. METAB OLIC PANEL (14) protein, total 7.5 g/dL 6.0-8. 5 Not Available [facility] ([facility]) [address] [facility] [place], [address], 08/27/2024 20:09:22 08/26/19 25 08/27/2024 COMP. METAB OLIC PANEL (14) albumin 4.1 g/dL 4.3-5. 2 below low normal Not Available [facility] ([facility]) [address] [facility] [place], [address], 08/27/2024 20:09:22 08/26/19 25 08/27/2024 COMP. METAB OLIC PANEL (14) globulin, total 3.4 g/dL 1.5-4. 5 Not Available [facility] ([facility]) [address] [facility] [place], [address], 08/27/2024 20:09:22 08/26/19 25 08/27/2024 COMP. METAB OLIC PANEL (14) bilirubin, total <0.2 mg/dL 0.0-1. 2 Not Available [facility] ([facility]) [address] [facility] [place], [address], 08/27/2024 20:09:22 08/26/19 25 08/27/2024 COMP. METAB OLIC PANEL (14) alkaline phosphatase 89 IU/L 44-121 Not Available [facility] ([facility]) [address] [facility] [place], [address], 08/27/2024 20:09:22 08/26/19 25 08/27/2024 COMP. METAB OLIC PANEL (14) AST (SGOT) 17 IU/L 0-40 Not Available [facility] ([facility]) [address] [place], [address], 08/27/2024 20:09:22 08/26/19 25 08/27/2024 COMP. METAB OLIC PANEL (14) ALT (SGPT) 9 IU/L 0-44 Not Available [facility] ([facility]) [address] [place], [address], 08/27/2024 20:09:22 08/26/19 25 08/27/2024 TSH RFX ON ABNOR MAL TO FREE T4 TSH 1.930 uIU/m L 0.450- 4.500 Not Available [facility] ([facility]) [address] [place], [address], 08/27/2024 20:09:23 08/26/19 25 08/27/2024 HEP B SURFA CE AB, QUAL hep B surface Ab, qual NON REACTI VE Non React wellington: Not immun e to HBV infec tion. Equiv ocal: Unabl e to deter mine if anti- HBs is prese nt at level s consi stent with immun ity. React wellington: Anti- HBs heather ntrat ion detec mynor at great er than 10 mIU/m L. Indiv idual is consi dered to be immun e to infec tion with HBV. Not Available [facility] ([facility]) [address] [facility], [place], [address], 08/27/2024 20:09:24 08/26/19 25 08/27/2024 RPR, RFX QN RPR/C ONFIR M TP RPR NON REACTI VE nonrea ctive Not Available [facility] ([facility]) [address] [facility], [place], [address], 08/27/2024 20:09:25 08/26/19 25 08/27/2024 CBC, PLATE LET, NO DIFFE RENTI AL WBC 5.7 x10e3 /uL 3.4-10 .8 Not Available [facility] ([facility]) [address] [facility], [place], [address], 08/27/2024 20:09:26 08/26/19 25 08/27/2024 CBC, PLATE LET, NO DIFFE RENTI AL RBC 4.75 x10e6 /uL 4.14-5 .80 Not Available [facility] ([facility]) [address] [facility], [place], [address], 08/27/2024 20:09:26 08/26/19 25 08/27/2024 CBC, PLATE LET, NO DIFFE RENTI AL hemoglobin 13.7 g/dL 13.0-1 7.7 Not Available [facility] ([facility]) [address] [place], [address], 08/27/2024 20:09:26 08/26/19 25 08/27/2024 CBC, PLATE LET, NO DIFFE RENTI AL hematocrit 41.8 % 37.5-5 1.0 Not Available [facility] ([facility]) [address] [facility], [place], [address], 08/27/2024 20:09:26 08/26/19 25 08/27/2024 CBC, PLATE LET, NO DIFFE RENTI AL MCV 88 fL 79-97 Not Available [facility] ([facility]) [address] [place], [address], 08/27/2024 20:09:26 08/26/19 25 08/27/2024 CBC, PLATE LET, NO DIFFE RENTI AL MCH 28.8 pg 26.6-3 3.0 Not Available [facility] ([facility]) [address] [place], [address], 08/27/2024 20:09:26 08/26/19 25 08/27/2024 CBC, PLATE LET, NO DIFFE RENTI AL MCHC 32.8 g/dL 31.5-3 5.7 Not Available [facility] ([facility]) [address] [place], [address], 08/27/2024 20:09:26 08/26/19 25 08/27/2024 CBC, PLATE LET, NO DIFFE RENTI AL RDW 11.0 % 11.6-1 5.4 below low normal Not Available [facility] ([facility]) [address] [place], [address], 08/27/2024 20:09:26 08/26/19 25 08/27/2024 CBC, PLATE LET, NO DIFFE RENTI AL platelets 372 x10e3 /uL 150-45 0 Not Available [facility] ([facility]) [address] [place], [address], 08/27/2024 20:09:26 08/26/1908/27/2024 HIV AB/P2 4 AG WITH REFLE X HIV Ab/P24 Ag screen NON REACTI VE nonrea ctive HIV-1 /HIV- 2 antib odies and HIV-1 p24 antig en were NOT detec mynor. There is no labor atory evide nce of HIV infec tion. HIV Negat wellington Not Available [facility] ([facility]) [address] [place], [address], 08/27/2024 20:09:28 Result Notes None recorded. Problems No Known Problems Medical Equipment None Reported. Allergies No known drug allergies Medications Name Sig Start Date Stop Date Status Note LastModified by Organization Details LastModified Time prednisone 10 mg tablet 09/16 completed Not Available Not Available Not Available clindamycin HCl 300 mg capsule TAKE 1 CAPSULE BY MOUTH EVERY 8 HOURS FOR 7 DAYS active Not Available Not Available No t Available azithromyci n 250 mg tablet TAKE 2 TABLETS BY MOUTH FOR 1 DAY THEN TAKE 1 TABLET BY MOUTH DAILY FOR 4 DAYS FOR PNEUMONIA 08/26 completed Not Available Not Available Not [...] Available Vitals Date Recorded Body height Body temperature Provider N carina and Address Organization Details Last Updated DateTime 04/22/2021 180.34 cm 97.3 [degF] Benedicto Mckeon MA [facility] 04/22/2021 16:02:30 Date Recorded Body height Body temperature Provider Urvashi carina and Address Organization Details Last Updated DateTime 05/14/2021 180.34 cm 97.3 [degF] Benedicto Mckeon MA [facility] 05/14/2021 12:11:14 Date Recorded Body height Body mass index (BMI) Percentile per age and sex Body mass index (BMI) Body weight Oxygen saturation Oxygen saturation in Arterial blood by Pulse oximetry Respiratory rate Heart rate Body temperature Systolic blood pressure Diastolic blood pressure Provider Name and Address Organization Details Last Updated DateTime 2 180.34 cm 1 % 18.1 kg/m2 45736.0 1 g 97 % 97 % 16 /min 102 /min 97.3 [degF] 114 mm[Hg] 78 mm[Hg] Daiana Espana [facility] 2 16:16:21 Date Recorded Body height Body mass index (BMI) Body weight Oxygen saturation Oxygen saturation in Arterial blood by Pulse oximetry Heart rate Respiratory rate Body temperature Systolic blood pressure Diastolic blood pressure Provider Name and Address Organization Details Last Updated DateTime 3 180.34 cm 17.3 kg/m2 56880.4 5 g 96 % 96 % 92 /min 16 /min 99.6 [degF] 128 mm[Hg] 86 mm[Hg] Daiana Espana [facility] 3 15:04:01 Date Recorded Body height Body mass index (BMI) Body weight Respiratory rate Body temperature Oxygen saturation Oxygen saturation in Arterial blood by Pulse oximetry Heart rate Systolic blood pressure Diastolic blood pressure Provider Name and Address Organization Details Last Updated DateTime 5 180.34 cm 17.9 kg/m2 17782.8 2 g 16 /min 97.5 [degF] 98 % 98 % 76 /min 110 mm[Hg] 70 mm[Hg] DaianaVIRAJ Funez [facility] 5 14:16:41 Social History Question Answer Notes LastModified by Organizat ion Details LastModified Time Tobacco Smoking Status Never Smoker Rowan Lowry [facility], [facility] 03/26/2021 11:02:27 Do You Have An Advance Directive? No Information not available 03/26/2021 Are You Blind Or Do You Have Difficulty Seeing? No Information not available 03/26/2021 What Is Your Level Of Caffeine Consumption? Occasional [email or web address] Information not available 08/26/2022 In The 14 [...] No Information not available 03/26/2021 Are You Deaf Or Do You Have Serious Difficulty Hearing? No Information not available 03/26/2021 What Type Of Diet Are You Following? REGULAR Information not available 03/26/2021 Are There Any Guns Present In Your Home? No Information not available 03/26/2021 What Was The Date Of Your Most Recent Tobacco Screening? 08/26/2024 Information not available 08/26/2024 What Is Your Relationship Status? Single Information not available 03/26/2021 Do You Use Your Seat Belt Or Car Seat Routinely? Yes Information not available 03/26/2021 Do You Have Smoke And Carbon Monoxide Detectors In Your Home? Yes Information not available 03/26/2021 Are You Passively Exposed To Smoke? No Information no t available 03/26/2021 Do You Use Sunscreen Routinely? Yes Information not available 03/26/2021 Has Tobacco Cessation Counseling Been Provided? Yes [email or web address] Information not available 08/26/2022 On What Date Was Tobacco Cessation Counseling Provided? 08/26/2024 Information not available 08/26/2024 How Many Years Have You Used E-cigarettes Or Vape? 5 08/26/24 Information not available 08/26/2024 Sex: Unknown Functional Status Question Answer Note LastModified by Organizat ion Details LastModified Time Do you use any illicit or recreational drugs? No Information not available 03/26/2021 Do you or have you ever used any other forms of tobacco or nicotine? Yes Information not available 03/26/2021 What is your level of alcohol consumption? None Information not available 03/26/2021 Are you currently employed? Yes Information not available 08/26/2024 Are you able to care for yourself? Yes Information not available 03/26/2021 What is your occupation? [email or web address] Information not available 08/26/2024 Do you or have you ever used e-cigarettes or vape? Current user of electronic cigarettes [email or web address] Information not available 08/26/2022 What is your exercise level? None [email or web address] Information not available 08/26/2022 Mental Status Question Answer Note LastModified by Organization D etails LastModified Time Do you feel stressed (tense, restless, nervous, or anxious, or unable to sleep at night)? [id number] Information not available 08/26/2024 Family History Nothing Reported Notes:He thinks his [...] Skin Problems N Anemia N Heart Attack (MD) N Diabetes N Seizures/Epilepsy N Asthma N Allergies N Substance Abuse N Hepatitis N Osteoporosis N Heart Failure N Immunizations Vaccine Type Date Status Note Provider Nam e and Address Organization Details Recorded Time Hib, unspecified formulation 3 completed Sole Mitchell, [employer]NA[employer], [employer] Attn: Accounting,[address] [facility], [place] [place], [place], [address] [place] [address], [place] [facility] 08/26/2022 15:18:49 Hib, unspecified formulation 2 completed Sole Mitchell, MANAGER HOME, [facility] Attn: Accounting,[address] [facility], [place], [address] [place] [address], [place] [facility] 08/26/2022 15:18:49 Hib-Hep B 2 completed Sole Danette MANAGER HOME, [facility] Attn: Accounting,[address] [facility], [place], [address] [place] [address], [place] [facility] 08/26/2022 15:18:49 Hib-Hep B 2 completed Sole Danette MANAGER HOME, [facility] Attn: Accounting,[address] [facility], [place], [address] [place] [address], [place] [facility] 08/26/2022 15:18:49 IPV 2 completed Sole Mitchell MANAGER HOME, [facility] Attn: Accounting,[address] [facility], [place], [address] [place] [address], [place] [facility] 08/26/2022 15:18:49 IPV 2 completed Sole Danette MANAGER HOME, [facility] Attn: Accounting,[address] [facility], [place], [address] [place] [address], [place] [facility] 08/26/2022 15:18:49 IPV 6 completed Sole Danette, MANAGER HOME, [facility] Attn: Accounting,[address] [facility], [place], [address] [place] [address], [place] [facility] 08/26/2022 15:18:49 IPV 2 completed Sole Danette MANAGER HOME, [facility] Attn: Accounting,[address] [facility], [place], [address] [place] [address], [facility] - [facility] 08/26/2022 15:18:49 MMR 3 completed Sole Mitchell, MANAGER HOME, [facility] Attn: Accounting,[address] [facility], [place], [place], [address] [place] [address] - [facility] 08/26/2022 15:18:49 MMR 6 completed Sole Mitchell, MANAGER HOME, [facility] Attn: Accounting,[address] [facility], [place], [address] [place] [address] - [facility] 08/26/2022 15:18:49 pneumococcal conjugate PCV 7 2 completed Sole Mitchell, MANAGER HOME, [facility] Attn: Accounting,[address] [facility], [place], [address] [place] [address] - [facility] 08/26/2022 15:18:49 pneumococcal conjugate PCV 7 3 completed Sole Mtichell, MANAGER HOME, [facility] Attn: Accounting,[address] [facility], [place], [address] [place] [address] - [facility] 08/26/2022 15:18:49 pneumococcal conjugate PCV 7 2 completed Sole Mitchell, MANAGER HOME, [facility] Attn: Accounting,[address] [facility], [place], [address] [place] [address] - [facility] 08/26/2022 15:18:49 pneumococcal conjugate PCV 7 2 completed Sole Mitchell, MANAGER HOME, [facility] Attn: Accounting,[address] [facility], [place], [address] [place] [address] - [facility] 08/26/2022 15:18:49 Tdap 3 completed Sole Mitchell, MANAGER HOME, [facility] Attn: Accounting,[address] [facility], [place], [address] [place] [address] - [facility] 08/26/2022 15:18:49 varicella 3 completed Sole Mitchell, MANAGER HOME, [facility] Attn: Accounting,[address] [facility], [place], [place], [address] [place], [place] [address]F 08/26/2022 15:18:49 varicella 6 completed Sole Mitchell, MANAGER HOME, [facility] Attn: Accounting,[address] [facility], [place], [address] [place] [address], [facility] 08/26/2022 15:18:49 HPV, quadrivalent 3 completed Sole Mitchell, MANAGER HOME, [facility] Attn: Accounting,[address] [facility], [place], [address] [place] [address], [facility] 08/26/2022 15:18:49 Hep B, adolescent or pediatric 1 completed Sole Mitchell, MANAGER HOME, [facility] Attn: Accounting,[address] [facility], [place], [address] [place] [address], [facility] 08/26/2022 15:18:49 Hep A, pediatric, unspecified formulation 6 completed Sole Mitchell, MANAGER HOME, [facility] Attn: Accounting,[address] [facility], [place], [address] [place] [address], [facility] 08/26/2022 15:18:49 Hep A, pediatric, unspecified formulation 6 completed Sole Mitchell, MANAGER HOME, [facility] Attn: Accounting,[address] [facility], [place], [address] [place] [address], [facility] 08/26/2022 15:18:49 meningococcal MCV4P 3 completed Sole Mitchell, MANAGER HOME, [facility] Attn: Accounting,[address] [facility], [place], [address] [place] [address], [facility] 08/26/2022 15:18:49 DTaP 2 completed Sole Mitchell, MANAGER HOME, [facility] Attn: Accounting,[address] [facility], [place], [address] [place] [address], [facility] 08/26/2022 15:18:49 DTaP 3 completed Sole Mitchell, MANAGER HOME, [facility] Attn: Accounting,[address] [facility], [place], [address], [place] [facility] 08/26/2022 15:18:49 DTaP 2 completed Sole Mitchell APN, [facility] Attn: Accounting,[address] [facility], [place], [address], [place] [facility] 08/26/2022 15:18:49 DTaP 6 completed Sole Mitchell APN, [facility] Attn: Accounting,[address] [facility], [place], [address], [place] [facility] 08/26/2022 15:18:49 DTaP 2 completed Sole Mitchell APN, [facility] Attn: Accounting,[address] [facility], [place], [address], [place] [facility] 08/26/2022 15:18:49 COVID-19, mRNA, LNP-S, PF, 30 [...] SNOMED-CT Code Diagnosis ICD10 Code Diagnosis Note [id number] MD Kenton Arnold (Adult Med) [address] [place] [address] 03/26/2021 10:56:20 03/30/2021 09:34:16 Adult health examination 849342330 Z00.01 Encouraged patient to eat well balanced meals, live active lifestyle and attend routine vision/den tri apts. Electronic cigarette user 213355300 Z72.0 Smoking cessation encouraged . Body mass index less than 20 250329315 Z68.1 healthy diet advised [id number] MD Kenton Arnold (Adult Med) [address] [place] [address] 04/22/2021 15:33:19 04/23/2021 11:42:12 Administration of SARS-CoV-2 antigen vaccine 581744290 Z23 [id number] Sole Mitchell APN, [facility] (Adult Med) [address] [place] [address] 05/14/2021 11:49:24 05/17/2021 11:42:01 Administration of SARS-CoV-2 antigen vaccine 374008290 Z23 [id number] MD Kenton Arnold (Adult Med) [address] [place] [facility] [place] [address] 09/16/2021 15:59:36 09/17/2021 10:53:14 Exposure to sexually transmissible disorder 626415492 Z20.2 exposed to std,was treated twice for std he got from ,will repeat screeningh iv consent signed Body mass index less than 20 947855920 Z68.1 healthy diet advised [id number] MD Kenton Arnold (Adult Med) [address] [place] [address] 08/26/2022 14:50:32 08/31/2022 13:26:08 Exposure to sexually transmissible disorder 710417984 Z20.2 no recent exposed to std,will repeat screeningh iv consent signed Underweight 772427666 R6 3.6 dwp healthy diet/weigh t Adult heal th examination 056224919 Z00.01 Encouraged patient to eat well balanced meals, live active lifestyle and attend routine vision/den tri apts. Electronic cigarette user 444516248 Z72.0 Smoking cessation encouraged . Administra tion of diphtheria, pertussis, and tetanus vaccine 187224412 Z23 [id number] MD Kenton Arnold (Adult Med) [address] [place] [address] 08/26/2024 14:05:32 08/27/2024 10:00:31 Adult health examination 449184309 Z00.01 Encouraged patient to eat well balanced meals, live active lifestyle and attend routine vision/den tri apts. Underweight 604714525 R6 3.6 dwp healthy diet/weigh t Electronic cigarette user 165632955 Z72.0 Smoking cessation encouraged . Venereal d isease screening 044745692 Z11.3 hx of chlamydiav erbal consent given Hemorrhoids 62504424 K64 .9 dwp increasing fiber in diet, try otc meds if needed Health Concerns Section Related Observation LastModified by Organization Detai ls LastModified Time None Recorded Concern Status LastModified by Organization Details LastModified Time None Recorded Advance Directives Directive N: Payers Encounter Date Sequence Insurance Name Policy Number Policy Pedroza Covered Member ID Pedroza Member ID Guarantor Name 04/22/2021 1 [facility] ON OR AFTER 01/07/21 (MEDICAID REPLACEMENT - HMO) Devang Zendejas [id number] Devang Zendejas 05/14/2021 1 [facility] ON OR AFTER 01/07/21 (MEDICAID REPLACEMENT - HMO) Devang Zendejas [id number] Devang Zendejas 09/16/2021 1 [facility] ON OR AFTER 01/07/21 (MEDICAID REPLACEMENT - HMO) Devang Zendejas [id number] Devang Zendejas 08/26/2022 1 [facility] ON OR AFTER 01/07/21 (MEDICAID REPLACEMENT - HMO) Devang Zendejas [id number] Devang Zendejas 08/26/2024 1 [facility] (MEDICAID HMO) [id number] Devang Zendejas [id number] Devang Zendejas Notes Date Note Type Note Provider Name and Address Organization Details Recorded Time 09/16/2021 text/html here for follow up, wants to have repeat std screening done; no recent exposure, no new symptoms Sole Mitchell APN, [facility] Attn: Accounting,[address] [facility], [place], [address], [facility] 09/16/2021 16:38:22 08/26/2022 text/html here for check up,had rash but has cleared up now;wants to have repeat std screening done; no recent exposure, no new symptoms Sole Mitchell APN, [facility] Attn: Accounting,[address] [place], [address], [facility] 08/26/2022 15:36:48 08/26/2024 text/html here for annual exam,pt had pneumonia 2 weeks and then had abscessed tooth after. went to to get abx.no complaints today except blood when he wiped, once Sole BREEZY Mitchell, [facility] Attn: Accounting,[address] [facility], [place], [address], [facility] 08/26/2024 14:36:28
[2024-11-27 19:21] VITALS: BP 118/71; PULSE 82; RESP 18; TEMP 37.2; O2SAT 100
--- NOTE | 2024-11-27 19:49 | ED_ITS ---
HPI - Skin/Abscess/Foreign Bdy General Chief complaint: Skin/Abscess/Foreign Body Stated complaint: Skin Sore Time Seen by Provider: 11/27/24 20:07 Source: patient Mode of arrival: ambulatory Limitations: no limitations History of Present Illness HPI narrative: 24 y/o male presented for c/o swelling, redness, and drainage around the toenails of the great toes bilaterally. Onset about 5 months, worsening for 2 m onths. States he tried to treat them at home with hydrogen peroxide. Related Data Allergies Allergy/AdvReac Type Severity Reaction Status Date / Time No Known Allergies Allergy Verified 11/27/24 19:25 Review of Systems Review of Systems: CONSTITUTIONAL: Denies body aches, fever, chills, or sweats. EYES: Denies visual changes, redness, or discharge. ENT: Denies rhinorrhea, congestion CARDIOVASCULAR: Denies chest pain, palpitations, or edema. RESPIRATORY: Denies cough or dyspnea. GASTROINTESTINAL: Denies abdominal pain, nausea, vomiting, or diarrhea. SKIN: reports swelling and drainage around great toes MUSCULOSKELETAL: Denies back pain, joint pain, or myalgia. NEUROLOGIC: Denies headache, numbness, tingling, or weakness. PMFSH Comments At time of signature, I have reviewed and agree with nursing past medical, surgical, social and family history unless otherwise noted. Please see nursing chart for further information. There is no relevant family history pertinent to the presenting complaint Exam Narrative: GENERAL: Well-appearing HEAD: Normocephalic, atraumatic. EYES: conjunctivae clear, and EOMI. ENT: Mucous membranes moist. Oropharynx without edema, erythema or lesions. CHEST: Clear to auscultation. HEART: Regular rate and rhythm. SKIN: Warm, dry. bilateral 1st toes with erythema, swelling, purulent drainage to medial and lateral aspects of the nail consistent with paronychia, active serous drainage noted. NEURO: Alert and oriented x3. Course Course Emergency Course: Patient is aware of diagnosis, understands and agrees to treatment plan. Anticipatory guidance given. Patient agrees to follow-up as directed and is aware of reasons to seek care at the emergency department. Portions of this record may have been created with voice recognition software Level of Care: Express Care Visit Vital Signs Vital signs: Vital Signs Temperature 99 F 11/27/24 19:21 Pulse Rate 82 11/27/24 19:21 Respiratory Rate 18 11/27/24 19:21 Blood Pressure 118/71 11/27/24 19:21 Pulse Oximetry 100 11/27/24 19:21 Oxygen Delivery Room Air 11/27/24 19:21 Temperature 99 F 11/27/24 19:21 Pulse Rate 82 11/27/24 19:21 Respiratory Rate 18 11/27/24 19:21 Blood Pressure 118/71 11/27/24 19:21 Pulse Oximetry 100 11/27/24 19:21 Oxygen Delivery Room Air 11/27/24 19:21 Reviewed MDM - Skin/Abscess/Foreign Bdy MDM Narrative Medical decision making narrative: Discussed physical exam findings. Advised supportive measures and signs /symptoms to go to the ER. Advised against hydrogen peroxide. Patient declined dressings. Pt is appropriate for outpt treatment and f/u with top inventory control executive. Differential Diagnosis Differential diagnosis: Likely abscess of skin or subcutaneous tissue, viral exanthem, dermatophytosis, urticaria, herpes zoster, cellulitis, eczema, insect bites, impetigo and contact dermatitis Discharge Plan Discharge Clinical Impression: Paronychia of toe of both feet Patient Disposition: Home Condition: Stable Instructions: Antibiotic Form, Paronychia (ED) Additional Instructions: Soak your Feet in warm soapy water 4 times each day. This can help with any additional drainage that needs to come out. Elevate your feet as often as you can. This will help decrease swelling and pain. Keep toes covered while draining. Motrin and Tylenol as needed for pain Take antibiotic as directed Please follow-up with your primary care doctor and top inventory control executive in the next 1-2 days. go to the ED for any worsening symptoms or concerns Patient Language: Bhutanese Prescriptions: New cephalexin 500 mg capsule 500 mg PO Q6H 7 Days Qty: 28 0RF ibuprofen 600 mg tablet 600 mg PO TID PRN (Reason: pain) Qty: 14 0RF Follow-up/Referrals: UNKNOWN,DOCTOR [Primary Care Provider] - Time of Disposition: 20:11
== END 2024-11-27 20:13 | disposition home or self-care (01) ==
PROVIDERS: Emergency Provider Nurse Practitioner Family
DX: L03.032 Cellulitis of left toe (principal); L03.031 Cellulitis of right toe
CPT/HCPCS: 99213; G0463

== ENCOUNTER 2025-03-08 18:11 | Emergency (ER) | payer OTHER, SELFPAY ==
--- OUTSIDE RECORDS SUMMARY | 2025-03-08 18:16 | XMS_ITS | Clinical Summary ---
Author Organization [facility] Address [address] [place] [address] Phone Care Team Providers Care Coal Getter Name Role Phone Sole Samaniego ARABELLA ARMSTRONG Primary Care Provider [phone] Allergies No known active allergies Medications ondansetron (ZOFRAN) 4 MG Tablet Take 1 Tablet by mouth every 8 hours as needed for Nausea - 1st line. 10 Tablet 08/31/2022 Active promethazine (PHENERGAN) 25 MG Tablet Take 1 Tablet by mouth nightly as needed for Nausea - 1st line (Sleep). 20 Tablet 11/27/2022 Active amoxicillin-cla vulanate (AUGMENTIN) 875-125 MG Tablet Take 1 Tablet by mouth 2 times daily for 10 days. 20 Tablet 02/15/2025 02/26/20 25 Encounters Date Type Department Care Team Description 02/15/2025 1:19 AM CDT - 02/15/2025 1:37 AM CDT Emergency [facility] Emergency [address] [place] [address] Geoffrey Bailey MD Paronychia of great toe Discharge Disposition: Discharged to home or Selfcare 02/15/2025 Travel from Last 3 Months Social History [...] Information Value Date Recorded Sex Assigned at Male 02/15/2025 1:30 AM CDT Legal Sex Male 11:30 PM CDT Gender Identity Male 02/15/2025 1:30 AM CDT Sexual Orientation Not on file Last Filed Vital Signs Vital Sign Reading Time Taken Comments Blood Pressure 137/89 02/15/2025 1:22 AM CDT Pulse 70 02/15/2025 1:22 AM CDT Temperature 36.5 C (97.7 F) 02/15/2025 1:22 AM CDT Respiratory Rate 16 02/15/2025 1:22 AM CDT Oxygen Saturation 100% 02/15/2025 1:22 AM CDT Inhaled Oxygen Concentration - - Weight 54.4 kg (120 lb) 02/15/2025 1:22 AM CDT Height 180.3 cm (5' 11) 02/15/2025 1:22 AM CDT Body Mass Index 16.74 02/15/2025 1:22 AM CDT Plan of Treatment Health Maintenance Due Date Last Done Comments Hepatitis C Virus (HCV) Screening 2001 Human Papillomavirus (HPV) Immunization (2 - Male 2-dose series) 08/28/2013 02/25/2013 Meningococcal B Immunization (1 of 2 - Standard) 2017 SARS-COV-2 Immunization ( season) 2024 05/14/2021, 04/22/2021 Influenza Immunization (#1) 2025 Respiratory Syncytial Virus (RSV) Immunization (Adult) (1 [...] age to complete this topic Insurance [place] Care Teams Coal Getter Relationship Specialty Start Date End Date Samaniego, PATTI Whipple, ARABELLA PCP - General Family Medicine 08/15/24
[2025-03-08 18:18] VITALS: BP 114/75; PULSE 96; RESP 18; TEMP 36.6; O2SAT 100
--- NOTE | 2025-03-08 18:23 | ED_ITS ---
HPI - Dental/Oral General Chief complaint: Dental/Oral Stated complaint: abscess Time Seen by Provider: 03/08/25 18:24 Source: patient Mode of arrival: ambulatory History of Present Illness HPI Narrative: 24-year-old male presented for complaint of right lower dental pain and jaw swelling. Onset yesterday. Says he was eating a chicken negative when he developed the pain. Endorses poor dentition throughout with multiple broken teeth and caries. Has taken ibuprofen. Denies difficulty swallowing, n/v/d/f/c. Complaint: tooth pain Related Data Allergies Allergy/AdvReac Type Severity Reaction Status Date / Time No Known Allergies Allergy Verified 03/08/25 18:23 Review of Systems Review of Systems: CONSTITUTIONAL: Denies body aches, fever, chills ENT: Denies rhinorrhea, congestion, sore throat, or otalgia. Reports dental pain CARDIOVASCULAR: Denies chest pain, palpitations RESPIRATORY: Denies cough or dyspnea. SKIN: Denies rash, itching, or wounds. MUSCULOSKELETAL: Denies myalgia. NEUROLOGIC: Denies headache, numbness, tingling, or weakness. PMFSH Comments At time of signature, I have reviewed and agree with nursing past medical, surgical, social and family history unless otherwise noted. Please see nursing chart for further information. There is no relevant family history pertinent to the presenting complaint Exam Narrative: GENERAL: Appears in pain; no acute distress. HEAD: Normocephalic, atraumatic. EYES: EOMI. No redness or drainage. Conjunctivae normal. ENT: Dental pain location of #28; facial swelling to the right mandible, no active drainage; poor dentition throughout multiple broken or missing teeth. Mucous membranes pink and moist. TMs normal bilaterally. Throat normal. no dysphagia, odynophagia, dysphonia, or dyspnea. No uvular deviation or soft palate edema. NECK: Normal AROM. No lymphadenopathy. no induration below mandible, no neck pain. CHEST: Clear to auscultation. HEART: Regular rate and rhythm. No murmur appreciated. SKIN: Warm, dry, no rash. Normal skin turgor. NEURO: No focal deficits. Alert and oriented x3. Gait steady. Course Course Emergency Course: Patient is aware of diagnosis, understands and agrees to treatment plan. Anticipatory guidance given. Patient agrees to follow-up as directed and is aware of reasons to seek care at the emergency department. Portions of this record may have been created with voice recognition software Level of Care: Express Care Visit Vital Signs Vital signs: Vital Signs Temperature 97.8 F 03/08/25 18:18 Pulse Rate 96 03/08/25 18:18 Respiratory Rate 18 03/08/25 18:18 Blood Pressure 114/75 03/08/25 18:18 Pulse Oximetry 100 03/08/25 18:18 Oxygen Delivery Room Air 03/08/25 18:18 Temperature 97.8 F 03/08/25 18:18 Pulse Rate 96 03/08/25 18:18 Respiratory Rate 18 03/08/25 18:18 Blood Pressure 114/75 03/08/25 18:18 Pulse Oximetry 100 03/08/25 18:18 Oxygen Delivery Room Air 03/08/25 18:18 MDM - Dental/Oral MDM Narrative Medical decision making narrative: Patients pain and complaint coupled with physical findings are consistent with dental abscess. There are no focal signs of space occupying lesions that are compromising to the airway; Patient is non-toxic appearing. The floor of the mouth is soft with no signs of Herbert's Angina; Patient is without trismus or drooling and able to swallow secretions. Patient is felt appropriate for discharge home with dental follow up. Discharge Plan Discharge Clinical Impression: Dental abscess Patient Disposition: Home Condition: Stable Instructions: Antibiotic Form, Dental Abscess (ED) Additional Instructions: Take antibiotic as directed May apply heat or ice to the face Gentle brushing and flossing. Rinse mouth with warm salt water at least 2 times a day. Alternate Tylenol and ibuprofen as needed for pain Follow-up with the dentist as soon as possible--see the list provided Go to the ER for worsening symptoms or concerns Patient Language: Georgian Prescriptions: New lidocaine HCl [Lidocaine Viscous] 2 % solution 1 applic mucous membrane TID PRN (Reason: pain) Qty: 100 0RF Rx Instructions: apply with cotton swab to site of pain amoxicillin-pot clavulanate 875-125 mg tablet 1 tablet PO Q12H 7 Days Qty: 14 0RF Follow-up/Referrals: Danette,Sole Paez APN [Primary Care Provider, Unknown] Stand Alone Forms: Work/School Release IP Time of Disposition: 18:30
== END 2025-03-08 18:30 | disposition home or self-care (01) ==
PROVIDERS: Emergency Provider Nurse Practitioner Family; PCP Nurse Practitioner Family
DX: K04.7 Periapical abscess without sinus (principal)
CPT/HCPCS: 99213; G0463